=== PATIENT | female | born 1995 | race Caucasian/White ===

== ENCOUNTER 2016-06-11 14:26 | Emergency (ER) | payer OTHER ==
[2016-06-11] MEDS ORDERED: ONDANSETRON 4 MG/2 ML VIAL IVP ONE ×2 (14:52→15:57)
[2016-06-11] MEDS ORDERED: NS 1,000 ML IV ONE ×2 (14:52→15:57)
[2016-06-11 15:07] LABS: % IMMATURE GRANULYOCYTES 0.4 % (0.0-1.1); ABSOLUTE IMMATURE GRANULOCYTES 0.06 10^3/uL (0.00-0.10); ADD DIFF? NO; ADD MORPH? NO; ADD SCAN? NO; ATYPICAL LYMPHOCYTE FLAG 0 (0-99); FRAGMENT RBC FLAG 0 (0-99); HEMATOCRIT 46.3 % (38.0-47.0); HEMOGLOBIN 15.9 g/dL (12.6-16.3); LEFT SHIFT FLG 0 (0-99); LIPEMIA HEMOLYSIS FLAG 90 (0-99); MEAN CELL HEMOGLOBIN 30.8 pg (27.9-34.1); MEAN CELL HEMOGLOBIN CONCENTR. 34.3 g/dL (32.4-36.7); MEAN CELL VOLUME 89.6 fL (81.5-99.8); MEAN PLATELET VOLUME 9.3 fL (8.7-11.7); PLATELET CLUMPS FLAG 0 (0-99); PLATELET COUNT 280 10^3/uL (150-400); RED BLOOD CELL COUNT 5.17 10^6/uL (4.18-5.33); RED CELL DISTRIBUTION WIDTH 13.1 % (11.5-15.2)
--- NOTE | 2016-06-11 15:09 | EDPHY ---
H & P Stated Complaint: sore throat, subjective fever, aches, nausea Source: Patient, Old records Exam Limitations: No limitations - Personal History LMP (Females 10-55): 15-21 Days Ago Current Tetanus/Diphtheria Vaccine: Unsure Current Tetanus Diphtheria and Acellular Pertussis (TDAP): Unsure Tetanus Vaccine Date: <10 years [employer] student - Medical/Surgical History Hx Asthma: Yes Hx Chronic Respiratory Disease: No Hx Diabetes: No Hx Cardiac Disease: No Hx Renal Disease: No Hx Cirrhosis: No Hx Alcoholism: No Hx HIV/AIDS: No Hx Splenectomy or Spleen Trauma: No Other PMH: Raynauds, cataracts, pancreatitis, asthma, vocal cord dysfunction, IBS, back pain, post concussion synd; septum repair 10/10/15. chronic n/v - Social History Smoking Status: Never smoked HPI/ROS: CHIEF COMPLAINT: sore throat, flu-like symptoms HISTORY OF PRESENT ILLNESS: patient reports 1 day history of fever, sore throat , cough, runny nose, body aches, anorexia, nausea, headache. She thinks she has the flu. She is not actively vomiting but does not have any appetite. She has no chest pain or shortness of breath. No abdominal pain. She may have some concentration of her urine. Fever was a T-max of 103 yesterday. She did have associated headache. There is no neck pain or stiffness. No recent travel or surgery. There are no particular modifying factors for this as she has had no improvement with [id number] medications. No other associated complaints or modifying factors. REVIEW OF SYSTEMS: Ten systems reviewed and are negative unless otherwise noted in the HPI EXAMINATION General Appearance: Alert, no distress Head: normocephalic, atraumatic Eyes: Pupils equal and round, no conjunctival pallor or injection . EOMs intact. ENT, Mouth: Mucous membranes moist . Uvula midline. Posterior erythema without edema. There is purulence on both tonsils. Tonsils are symmetric and without abscess. Airway is patent. No abnormality of the floor of the mouth. Neck: Normal inspection, supple, non-tender . Painless range of motion all planes. No meningismus. Respiratory: Lungs are clear to auscultation . No wheezing, rhonchi or crackles. Cardiovascular: Regular rate and rhythm . No murmur. Pulses intact distally and symmetrically. Gastrointestinal: Abdomen is soft and nontender . No CVA tenderness Neurological: A&O, nonfocal, normal gait. Strength is symmetric in all limbs. Skin: Warm and dry, No petechiae or purpura. No rash. Extremities: Nontender, no pedal edema Psychiatric: Mood and affect normal DIFFERENTIAL DIAGNOSES: Including but not limited to Influenza, viral illness, nausea vomiting, dehydration, strep pharyngitis, electrolyte disturbance, UTI MDM: 2:55 p.m. Multiple complaints consistent with most likely influenza or viral illness. No chest pain. No shortness of breath. No abdominal pain. She does have vomiting , body aches, chills, headache, anorexia and feels that she is dehydrated. Vital signs are stable with very mild tachycardia 106 beats per minute at times , otherwise no tachycardia while I was in the room. Baseline laboratory studies , IV fluid, influenza and rapid strep been ordered. 3:25 p.m. laboratory studies positive for strep pharyngitis. Negative influenza. CBC reveals than expected leukocytosis. Chemistry pending. Vital signs are stable. Given her drug allergies I will initiate treatment with clindamycin. 3:55 p.m. I have re-evaluated the patient. I informed her of her positive for rapid strep test. I also informed that her laboratory studies are otherwise normal. Informed her that I be discharged home with clindamycin, Zofran and promethazine. The patient then began crying saying that she needs to be admitted for this. I informed her that she does not meet inpatient or observation criteria for her strep pharyngitis. I informed that we will provide another L of IV fluid resuscitation and she will be discharged home. She is follow up with primary care physician, Ede or return to ER should her symptoms worsen. SUPERVISION: This patient was independently evaluated without the aide of supervising physician. (Roldan Austin) Constitutional: Initial Vital Signs Temperature (C) 36.7 C 06/11/16 14:28 Heart Rate 108 H 06/11/16 14:28 Respiratory Rate 16 06/11/16 14:28 Blood Pressure 102/79 06/11/16 14:28 O2 Sat (%) 98 06/11/16 14:28 O2 Delivery Mode Room Air Allergies/Adverse Reactions: azithromycin Allergy (Severe, Verified 03/30/16 12:32) Abdominal Pain amoxicillin Allergy (Verified 03/30/16 12:32) Home Medications: Medication Instructions Recorded Nortriptyline HCl 12/03/15 Spironolactone 12/03/15 AMPHOTERICIN B 03/29/16 Albuterol 5 mg/ml INH 03/29/16 Baclofen 03/29/16 Budesonide 03/29/16 Clindamycin 03/29/16 Oxycodone HCl/Acetaminophen 1 each PO Q6 PRN #15 tablet 03/29/16 [Oxycodone-Acetaminophen 10-325] Symbicort 160-4.5 Mcg Inh (*) 03/29/16 VYVANSE 03/29/16 Ondansetron Odt [Zofran Odt 4 mg 4 mg PO Q4PRN PRN #20 tab 03/30/16 (*)] Promethazine HCl [Phenergan 25mg 25 mg PO Q4-6PRN PRN #12 tab 03/30/16 (*)] Hydrocodone/APAP 5/325 [Michael 1 - 2 tab PO Q4 PRN #14 tab 04/01/16 5/325 (RX)] Acetaminophen/Codeine 300/30Mg 1 each PO Q6 PRN #15 tab 06/11/16 [Tylenol #3 (*)] Clindamycin 300 mg PO Q8 #42 cap 06/11/16 Ondansetron Odt [Zofran Odt 4 mg 4 mg PO Q6 PRN #12 tab 06/11/16 (*)] Promethazine HCl [Phenergan 25mg 25 mg PO Q8 PRN #12 tab 06/11/16 (*)] Medical Decision Making Other Provider: The patient was evaluated and managed by the physician assistant producer. I have reviewed this chart and I agree with the findings and plan of care as documented , as indicated by my signature. I am the secondary supervising physician. ( Carolyn Guadarrama) - Data Points Laboratory Results: Laboratory Results 06/11/16 14:55 06/11/16 14:55 06/11/16 06/11/16 06/11/16 14:55 14:55 14:55 WBC 14.33 10^3/uL H 10^3/uL (3.80-9.50) RBC 5.17 10^6/uL 10^6/uL (4.18-5.33) Hgb 15.9 g/dL g/dL (12.6-16.3) Hct 46.3 % % (38.0-47.0) MCV 89.6 fL fL (81.5-99.8) MCH 30.8 pg pg (27.9-34.1) MCHC 34.3 g/dL g/dL (32.4-36.7) RDW 13.1 % % (11.5-15.2) Plt Count 280 10^3/uL 10^3/uL (150-400) MPV 9.3 fL fL (8.7-11.7) Neut % (Auto) 83.8 % H % (39.3-74.2) Lymph % (Auto) 10.5 % L % (15.0-45.0) [place] % (Auto) 4.5 % % (4.5-13.0) Eos % (Auto) 0.3 % L % (0.6-7.6) Baso % (Auto) 0.5 % % (0.3-1.7) Nucleat RBC Rel Count 0.0 % % (0.0-0.2) Absolute Neuts (auto) 12.00 10^3/uL H 10^3/uL (1.70-6.50) Absolute Lymphs (auto) 1.51 10^3/uL 10^3/uL (1.00-3.00) Absolute Monos (auto) 0.64 10^3/uL 10^3/uL (0.30-0.80) Absolute Eos (auto) 0.05 10^3/uL 10^3/uL (0.03-0.40) Absolute Basos (auto) 0.07 10^3/uL 10^3/uL (0.02-0.10) Absolute Nucleated RBC 0.00 10^3/uL 10^3/uL (0-0.01) Immature Gran % 0.4 % % (0.0-1.1) Immature Gran # 0.06 10^3/uL 10^3/uL (0.00-0.10) Sodium 137 mEq/L mEq/L (134-144) Potassium 3.8 mEq/L mEq/L (3.5-5.2) Chloride 98 mEq/L mEq/L (97-110) Carbon Dioxide 25 mEq/l mEq/l (22-31) Anion Gap 14 mEq/L mEq/L (8-16) BUN 10 mg/dL mg/dL (7-23) Creatinine 0.7 mg/dL mg/dL (0.6-1.0) Estimated GFR > 60 Glucose 75 mg/dL mg/dL (70-100) Calcium 10.1 mg/dL mg/dL (8.5-10.4) Lipase 62.0 IU/L IU/L (23-300) Beta HCG, Qual NEGATIVE Influenza Typ A,B (DFA) Group A Strep Screen 06/11/16 06/11/16 14:45 14:45 WBC RBC Hgb Hct MCV MCH MCHC RDW Plt Count MPV Neut % (Auto) Lymph % (Auto) [place] % (Auto) Eos % (Auto) Baso % (Auto) Nucleat RBC Rel Count Absolute Neuts (auto) Absolute Lymphs (auto) Absolute Monos (auto) Absolute Eos (auto) Absolute Basos (auto) Absolute Nucleated RBC Immature Gran % Immature Gran # Sodium Potassium Chloride Carbon Dioxide Anion Gap BUN Creatinine Estimated GFR Glucose Calcium Lipase Beta HCG, Qual Influenza Typ A,B (DFA) NEGATIVE FOR FLU (NEGATIVE) Group A Strep Screen POSITIVE H (NEGATIVE) Medications Given: Discontinued Medications Clindamycin (Clindamycin) 300 mg PO EDNOW ONE PRN Reason: Protocol Stop: 06/11/16 15:28 Last Admin: 06/11/16 15:38 Dose: 300 mg Sodium Chloride (Ns) 1,000 mls @ 0 mls/hr IV ONCE ONE PRN Reason: Wide Open Stop: 06/11/16 14:53 Last Admin: 06/11/16 15:00 Dose: 1,000 mls Sodium Chloride (Ns) 1,000 mls @ 0 mls/hr IV ONCE ONE PRN Reason: Wide Open Stop: 06/11/16 15:58 Last Admin: 06/11/16 16:00 Dose: 1,000 mls Ondansetron HCl (Zofran) 4 mg IVP EDNOW ONE Stop: 06/11/16 14:53 Last Admin: 06/11/16 15:00 Dose: 4 mg Ondansetron HCl (Zofran) 4 mg IVP EDNOW ONE Stop: 06/11/16 15:58 Last Admin: 06/11/16 16:02 Dose: 4 mg Departure - Departure Disposition: Home, Routine, Self-Care Clinical Impression: Flu-like symptoms, Strep pharyngitis Condition: Good Instructions: Influenza (ED) Additional Instructions: Follow-up with primary care physician. Return to the ER for chest pain, shortness of breath or vomiting the last 24 hours. Referrals: CELINE ABBOTT [Primary Care Provider] - As per Instructions Stand Alone Forms: School Excuse Prescriptions: Acetaminophen/Codeine 300/30Mg [Tylenol #3 (*)] 1 each PO Q6 PRN #15 tab PRN Reason: Pain, Mild Clindamycin 300 mg PO Q8 #42 cap Ondansetron Odt [Zofran Odt 4 mg (*)] 4 mg PO Q6 PRN #12 tab PRN Reason: Nausea/Vomiting, Use 1st Promethazine HCl [Phenergan 25mg (*)] 25 mg PO Q8 PRN #12 tab PRN Reason: Nausea/Vomiting, Use 1st
[2016-06-11] MEDS ORDERED: CLINDAMYCIN 150 MG CAP PO ONE (15:27)
[2016-06-11 15:33] LABS: ANION GAP 14 mEq/L (8-16); CALCIUM 10.1 mg/dL (8.5-10.4); CARBON DIOXIDE 25 mEq/l (22-31); CHLORIDE 98 mEq/L (97-110); CREATININE 0.7 mg/dL (0.6-1.0); GLOMERULAR FILTRATION RATE > 60; GLUCOSE 75 mg/dL (70-100); POTASSIUM 3.8 mEq/L (3.5-5.2); SODIUM 137 mEq/L (134-144)
[2016-06-11 17:41] VITALS: BP 110/69; PULSE 90; RESP 20; TEMP 99; O2SAT 96
== END 2016-06-11 17:42 | disposition home or self-care (01) ==
DX: J11.1 Influenza due to unidentified influenza virus with other respiratory manifestations (principal); J45.909 Unspecified asthma, uncomplicated
CPT/HCPCS: 96374; J2405

== ENCOUNTER 2016-06-30 14:22 | Emergency (ER) | payer OTHER ==
[2016-06-30] MEDS ORDERED: ONDANSETRON 4 MG/2 ML VIAL IVP ONE (17:09)
[2016-06-30] MEDS ORDERED: NS 1,000 ML IV ONE (17:09)
[2016-06-30] MEDS ORDERED: LORazepam 2 MG/ML INJ IVP ONE (17:17)
--- NOTE | 2016-06-30 17:23 | EDPHY ---
General Narrative: CHIEF COMPLAINT: multiple complaints, flu-like symptoms, strep pharyngitis HISTORY OF PRESENT ILLNESS: patient has had sore throat and flu-like symptoms since May. The symptoms have been constant. They are moderate to severe. They wax and wane but never improved beyond moderate. No neck pain or stiffness. She has had some headache, body aches, chills, nausea, vomiting, diarrhea. She has been seen multiple times for this both here and at specialist 's office. She says that no medications that have been used to help her. These include multiple different antibiotics, nausea medicines and over-the- counter medicines. She cannot really quantify her severity of her complaints. She is crying during my examination. She says she has also seen a vest busheler recently been diagnosed with fibromyalgia last week. She has become very tearful and upset with this process. She denies any predictable alleviating factors. No other associated complaints. REVIEW OF SYSTEMS: Ten systems reviewed and are negative unless otherwise noted in the HPI EXAMINATION General Appearance: Alert, No acute distress. Crying but consolable. Head: normocephalic, atraumatic Eyes: Pupils equal and round, no conjunctival pallor or injection . EOMs intact. ENT, Mouth: Mucous membranes moist . Posterior erythema. No edema. No abscess. No abnormality of the floor the mouth. Neck: Normal inspection, supple, non-tender . Anterior cervical lymphadenopathy. No rigidity or meningismus. Respiratory: Lungs are clear to auscultation . No wheezing, rhonchi or crackles. Cardiovascular: Regular rate and rhythm . No murmur. Pulses intact distally. Gastrointestinal: Abdomen is soft and nontender . No tympany. No rigidity. No guarding. No Rovsing. No CVA tenderness. Nonacute abdomen. Neurological: A&O, nonfocal, Strength is symmetric in all limbs. Skin: Warm and dry, no rash Extremities: Nontender, Symmetric range of motion.no pedal edema Psychiatric: Depressed mood and affect. No suicidal or homicidal ideation. Tearful. DIFFERENTIAL DIAGNOSES: Including but not limited to Depression, mood disorder, chronic strep pharyngitis, influenza, viral illness, nausea vomiting, gastroparesis, chronic regional pain MDM: 5:15 p.m. multiple complaints that are very vague and difficult for her to describe. He has include sore throat, body aches, abdominal pain, vomiting, headache, fevers , chills. The patient says she has been seen by Rheumatology, primary care physician, Infectious Disease, psychiatrist and others without any formal diagnosis. She has no chest pain. She has occasional cough. She is crying during my examination, but there are no abnormal physical findings. I will provide IV fluid resuscitation, Ativan for her stress and verify her electrolytes 6:15 p.m. I have re-evaluated the patient. She is now smiling and watching a movie on her laptop with her boyfriend who is lying in the bed with her. She is in no acute distress. Her vital signs are stable. Her laboratory studies are better than her previous visits. I feel there is a viral component, but I feel there is also a psychiatric component to this. I recommend she follow up with [facility]. She is not suicidal or homicidal, but there is no need for inpatient evaluation at this time. I also recommend she reconsider her primary care physician given that she reports being unhappy with the care. She is discharged home in stable condition with no further questions at this time. SUPERVISION: Patient was evaluated in conjunction with the supervising physician. Please see their note for details. - History Smoking Status: Never smoked - Objective Vital Signs: Initial Vital Signs Temperature (C) 98.1 F 06/30/16 14:37 Heart Rate 97 06/30/16 14:37 Respiratory Rate 18 06/30/16 14:37 Blood Pressure 98/81 H 06/30/16 14:37 O2 Sat (%) 94 06/30/16 14:37 O2 Delivery Mode Room Air Allergies/Adverse Reactions: azithromycin Allergy (Severe, Verified 06/30/16 14:35) Abdominal Pain amoxicillin Allergy (Verified 06/30/16 14:35) Home Medications: Medication Instructions Recorded Nortriptyline HCl 12/03/15 Spironolactone 12/03/15 Albuterol 5 mg/ml INH 03/29/16 Baclofen 03/29/16 Budesonide 03/29/16 Symbicort 160-4.5 Mcg Inh (*) 03/29/16 VYVANSE 03/29/16 Ondansetron Odt [Zofran Odt 4 mg 4 mg PO Q4PRN PRN #20 tab 03/30/16 (*)] Promethazine HCl [Phenergan 25mg 25 mg PO Q4-6PRN PRN #12 tab 03/30/16 (*)] Acetaminophen/Codeine 300/30Mg 1 each PO Q6 PRN #15 tab 06/11/16 [Tylenol #3 (*)] Ondansetron Odt [Zofran Odt 4 mg 4 mg PO Q6 PRN #12 tab 06/11/16 (*)] Promethazine HCl [Phenergan 25mg 25 mg PO Q8 PRN #12 tab 06/11/16 (*)] hydrOXYzine HCL [Hydroxyzine HCl] 50 mg PO Q6-8PRN PRN #20 tablet 06/30/16 Laboratory Results: Laboratory Results 06/30/16 17:07 06/30/16 17:07 06/30/16 06/30/16 06/30/16 17:58 17:07 17:07 WBC 8.70 10^3/uL 10^3/uL (3.80-9.50) RBC 5.17 10^6/uL 10^6/uL (4.18-5.33) Hgb 15.3 g/dL g/dL (12.6-16.3) Hct 45.2 % % (38.0-47.0) MCV 87.4 fL fL (81.5-99.8) MCH 29.6 pg pg (27.9-34.1) MCHC 33.8 g/dL g/dL (32.4-36.7) RDW 12.8 % % (11.5-15.2) Plt Count 331 10^3/uL 10^3/uL (150-400) MPV 9.6 fL fL (8.7-11.7) Neut % (Auto) 76.3 % H % (39.3-74.2) Lymph % (Auto) 16.6 % % (15.0-45.0) [place] % (Auto) 5.5 % % (4.5-13.0) Eos % (Auto) 0.8 % % (0.6-7.6) Baso % (Auto) 0.6 % % (0.3-1.7) Nucleat RBC Rel Count 0.0 % % (0.0-0.2) Absolute Neuts (auto) 6.64 10^3/uL H 10^3/uL (1.70-6.50) Absolute Lymphs (auto) 1.44 10^3/uL 10^3/uL (1.00-3.00) Absolute Monos (auto) 0.48 10^3/uL 10^3/uL (0.30-0.80) Absolute Eos (auto) 0.07 10^3/uL 10^3/uL (0.03-0.40) Absolute Basos (auto) 0.05 10^3/uL 10^3/uL (0.02-0.10) Absolute Nucleated RBC 0.00 10^3/uL 10^3/uL (0-0.01) Immature Gran % 0.2 % % (0.0-1.1) Immature Gran # 0.02 10^3/uL 10^3/uL (0.00-0.10) Sodium Potassium Chloride Carbon Dioxide Anion Gap BUN Creatinine Estimated GFR Glucose Calcium Total Bilirubin Conjugated Bilirubin Unconjugated Bilirubin AST ALT Alkaline Phosphatase Total Protein Albumin Lipase Beta HCG, Qual NEGATIVE Urine Opiates Screen Pending Urine Barbiturates Pending Ur Phencyclidine Scrn Pending Ur Amphetamine Screen Pending U Benzodiazepines Scrn Pending Urine Cocaine Screen Pending U Marijuana (THC) Screen Pending Monoscreen NEGATIVE (NEGATIVE) 06/30/16 17:07 WBC RBC Hgb Hct MCV MCH MCHC RDW Plt Count MPV Neut % (Auto) Lymph % (Auto) [place] % (Auto) Eos % (Auto) Baso % (Auto) Nucleat RBC Rel Count Absolute Neuts (auto) Absolute Lymphs (auto) Absolute Monos (auto) Absolute Eos (auto) Absolute Basos (auto) Absolute Nucleated RBC Immature Gran % Immature Gran # Sodium 137 mEq/L mEq/L (134-144) Potassium 3.7 mEq/L mEq/L (3.5-5.2) Chloride 101 mEq/L mEq/L (97-110) Carbon Dioxide 20 mEq/l L mEq/l (22-31) Anion Gap 16 mEq/L mEq/L (8-16) BUN 6 mg/dL L mg/dL (7-23) Creatinine 0.7 mg/dL mg/dL (0.6-1.0) Estimated GFR > 60 Glucose 93 mg/dL mg/dL (70-100) Calcium 9.8 mg/dL mg/dL (8.5-10.4) Total Bilirubin 0.6 mg/dL mg/dL (0.1-1.4) Conjugated Bilirubin 0.5 mg/dL mg/dL (0.0-0.5) Unconjugated Bilirubin 0.1 mg/dL mg/dL (0.0-1.1) AST 27 IU/L IU/L (14-46) ALT 33 IU/L IU/L (9-52) Alkaline Phosphatase 73 IU/L IU/L (38-126) Total Protein 8.1 g/dL g/dL (6.3-8.2) Albumin 4.7 g/dL g/dL (3.5-5.0) Lipase 155.0 IU/L IU/L (23-300) Beta HCG, Qual Urine Opiates Screen Urine Barbiturates Ur Phencyclidine Scrn Ur Amphetamine Screen U Benzodiazepines Scrn Urine Cocaine Screen U Marijuana (THC) Screen Monoscreen Medications Given: Discontinued Medications Sodium Chloride (Ns) 1,000 mls @ 0 mls/hr IV ONCE ONE PRN Reason: Wide Open Stop: 06/30/16 17:10 Last Admin: 06/30/16 17:19 Dose: 1,000 mls Lorazepam (Ativan Injection) 1 mg IVP EDNOW ONE Stop: 06/30/16 17:18 Last Admin: 06/30/16 17:25 Dose: 1 mg Ondansetron HCl (Zofran) 4 mg IVP EDNOW ONE Stop: 06/30/16 17:10 Last Admin: 06/30/16 17:25 Dose: 4 mg Departure - Departure Disposition: Home, Routine, Self-Care Clinical Impression: Viral syndrome Condition: Good Instructions: Viral Syndrome (ED), Anxiety (ED), [facility] Referrals: CELINE ABBOTT [Primary Care Provider] - As per Instructions Raudel Rodarte MD [Medical Doctor] - As per Instructions Veronica Adams MD [Medical Doctor] - As per Instructions [facility],. [Clinic] - As per Instructions Prescriptions: hydrOXYzine HCL [Hydroxyzine HCl] 50 mg PO Q6-8PRN PRN #20 tablet PRN Reason: Itching
[2016-06-30 17:29] LABS: % IMMATURE GRANULYOCYTES 0.2 % (0.0-1.1); ABSOLUTE IMMATURE GRANULOCYTES 0.02 10^3/uL (0.00-0.10); ADD DIFF? NO; ADD MORPH? NO; ADD SCAN? NO; ATYPICAL LYMPHOCYTE FLAG 30 (0-99); FRAGMENT RBC FLAG 0 (0-99); HEMATOCRIT 45.2 % (38.0-47.0); HEMOGLOBIN 15.3 g/dL (12.6-16.3); LEFT SHIFT FLG 0 (0-99); LIPEMIA HEMOLYSIS FLAG 90 (0-99); MEAN CELL HEMOGLOBIN 29.6 pg (27.9-34.1); MEAN CELL HEMOGLOBIN CONCENTR. 33.8 g/dL (32.4-36.7); MEAN CELL VOLUME 87.4 fL (81.5-99.8); MEAN PLATELET VOLUME 9.6 fL (8.7-11.7); PLATELET CLUMPS FLAG 0 (0-99); PLATELET COUNT 331 10^3/uL (150-400); RED BLOOD CELL COUNT 5.17 10^6/uL (4.18-5.33); RED CELL DISTRIBUTION WIDTH 12.8 % (11.5-15.2)
[2016-06-30 17:46] LABS: ALANINE AMINOTRANSFERASE 33 IU/L (9-52); ALBUMIN 4.7 g/dL (3.5-5.0); ALKALINE PHOSPHATASE 73 IU/L (38-126); ANION GAP 16 mEq/L (8-16); ASPARTATE AMINOTRANSFERASE 27 IU/L (14-46); BILIRUBIN,TOTAL 0.6 mg/dL (0.1-1.4); BILIRUBIN-CONJUGATED 0.5 mg/dL (0.0-0.5); BILIRUBIN-UNCONJUGATED 0.1 mg/dL (0.0-1.1); CALCIUM 9.8 mg/dL (8.5-10.4); CARBON DIOXIDE 20 mEq/l (22-31); CHLORIDE 101 mEq/L (97-110); CREATININE 0.7 mg/dL (0.6-1.0); GLOMERULAR FILTRATION RATE > 60; GLUCOSE 93 mg/dL (70-100); POTASSIUM 3.7 mEq/L (3.5-5.2); SODIUM 137 mEq/L (134-144); TOTAL PROTEIN 8.1 g/dL (6.3-8.2)
[2016-06-30 17:54] LABS: BHCG-QUALITATIVE NEGATIVE
[2016-06-30 17:55] LABS: MONO TEST NEGATIVE (NEGATIVE)
[2016-06-30 18:40] VITALS: BP 109/62; PULSE 96; RESP 20; TEMP 99.1; O2SAT 97
== END 2016-06-30 18:40 | disposition home or self-care (01) ==
DX: B34.9 Viral infection, unspecified (principal)
CPT/HCPCS: 80305; 96374; J2405

== ENCOUNTER 2017-03-01 18:09 | Emergency (ER) | payer OTHER ==
[2017-03-01 18:25] VITALS: TEMP 98.4
--- NOTE | 2017-03-01 19:44 | EDPHY ---
H & P Stated Complaint: H/A, sore throat;head feels heavy,fever this morning *botox~ 2wks ago Time Seen by Provider: 03/01/17 19:28 HPI/ROS: CHIEF COMPLAINT: Migraine, neck pain, fever HISTORY OF PRESENT ILLNESS: The patient is a 22 y/o female with a history of chronic migraines, complaining of a migraine, neck pain, and fever for the past 4 days. On 02/15/17, 2 weeks ago, she visited her neurologist and received a Botox injection in the back of her neck for her migraines. This was her first Botox injection. 4 days ago she developed nasal congestion, diarrhea, nausea, a fever, pain near the injection site, and a migraine. Due to the pain, it is mildly difficult to breath. She also developed a rash on her armpits. Yesterday she had a sore throat. Today her neck pain worsened. She and her family are very concerned that she may have meningitis. She also is concerned that she has a sinus infection with significant sinus/facial pain. She is still having post-nasal drip, nausea, diarrhea, neck pain and a migraine. She has also felt clammy. States that most pain medications and migraine medications do not work. Denies speaking to her neurologist regarding her symptoms. Denies taking anything to relieve her symptoms. Denies tobacco or illicit drug use. Denies recent travel outside of the [place]. No chills, chest pain, palpitations, vomiting, urinary complaints, lightheadedness. REVIEW OF SYSTEMS: Aside from elements discussed in the HPI, a comprehensive 10-point review of systems was reviewed and is negative. PAST MEDICAL HISTORY: Chronic migraines, fibromyalgia, Raynaud, cataracts, pancreatitis, asthma, IBS SOCIAL HISTORY: Student at , lives in [place], marijuana and alcohol use VITAL SIGNS: BP: 95/60, others reviewed by me GENERAL: Well-developed, well-nourished, resting comfortably in no respiratory distress. HEENT: Atraumatic. Eyes: No icterus, no injection. Tenderness to percussion across the maxillary sinuses. Mouth: moist mucous membranes. Pharynx: Mild erythema, no tonsillar enlargement or exudates. Neck: Difficulty lifting and turning neck secondary to pain, no adenopathy. Neck is supple. Paraspinous muscles are soft and supple. Negative Kernig's and Brudzinski's. LUNGS: Clear to auscultation bilaterally, no wheezes, rhonchi or rales. CARDIAC: Regular rate and rhythm, no rubs, murmurs or gallops. ABDOMEN: Soft, nontender, nondistended, bowel sounds normal. BACK: No CVA tenderness. EXTREMITIES: No trauma. No edema. Range of motion is normal throughout. NEURO: Alert and oriented, cranial nerves 2-12 are intact. Normal motor strength throughout. Normal sensation. Not encephalopathic. SKIN: Erythematous, slightly urticarial in appearance, rash in both axilla, left greater than right. Warm and dry. PSYCHIATRIC: Normal mentation, no agitation. Portions of this note were transcribed by a regional medical director. I personally performed a history, physical exam, medical decision making, and confirmed accuracy of information the transcribed note. - Personal History LMP (Females 10-55): 1-7 Days Ago Current Tetanus Diphtheria and Acellular Pertussis (TDAP): Yes Tetanus Vaccine Date: <10 years [employer] student - Medical/Surgical History Hx Asthma: Yes Hx Chronic Respiratory Disease: No Hx Diabetes: No Hx Cardiac Disease: No Hx Renal Disease: No Hx Cirrhosis: No Hx Alcoholism: No Hx HIV/AIDS: No Hx Splenectomy or Spleen Trauma: No Other PMH: Raynauds, cataracts, pancreatitis, asthma, vocal cord dysfunction, IBS, back pain, post concussion synd; septum repair 10/10/15. chronic n/v fibromyalgia. daily migraines tx'd w/botox - Social History Smoking Status: Never smoked Constitutional: Initial Vital Signs Temperature (C) 36.9 C 03/01/17 18:22 Heart Rate 78 03/01/17 18:22 Respiratory Rate 16 03/01/17 18:22 Blood Pressure 95/60 L 03/01/17 18:22 O2 Sat (%) 98 03/01/17 18:22 O2 Delivery Mode Room Air Allergies/Adverse Reactions: amoxicillin Allergy (Intermediate, Verified 03/01/17 18:20) facial swelling/hives azithromycin Allergy (Intermediate, Verified 03/01/17 18:20) Abdominal Pain Home Medications: Medication Instructions Recorded Spironolactone 12/03/15 Botulinum Toxin Type A [Botox] 100 unit IJ 03/01/17 Doxycycline Hyclate [Vibramycin 100 mg PO BID 03/01/17 100 MG (*)] Sulfamethox/Tmp 800/160 mg 1 tab PO BID #14 tab 03/01/17 [Bactrim Ds] Medical Decision Making Procedures: Procedure: Lumbar puncture. Indication: headache After verbal informed consent from patient explaining the risks including infection, bleeding, and neurologic damage, a lumbar puncture was performed after the patient was prepped and draped in the usual fashion. The back was anesthetized with 1% lidocaine. Approximately 4 cc of clear fluid was obtained using a 22 gauge needle on the 1st pass. Opening pressure was not obtained. There were no complications. The procedure was performed by myself, Dr. William ED Course/Re-evaluation: The patient is a 22 y/o female with a history of chronic migraines, presenting with posterior neck pain, migraine, sinus congestion, and nausea for the past 4 days. She received her first Botox injection for chronic migraines on 02/15/17, 2 weeks ago. On exam she has an erythemic throat, nonspecific rash in both axilla, and difficulty lifting and turning her neck due to pain. IV placed and patient received normal saline. She requested Zofran for nausea. She received Decadron for her headache pain. She reports that ketorolac and opiate medications do not help her headache. She did receive Benadryl. 2024: Reassessed patient and discussed negative laboratory findings. Her headache is the same from the initial exam. She continues to report that her neck is very painful. I discussed performing a lumbar puncture. She is comfortable with the plan to do a lumbar puncture. Valium administered for patient's headache. 2099: Lumbar puncture performed. Fluid is clear. Sent to lab for analysis. 2113: Patient's flu is negative. 2156: CSF results reassuring with 0 reds and 0 whites in tube 4, clear, colorless, no organisms seen on Gram stain. 2199: Reassessed patient and discussed laboratory findings. At this point we have ruled out meningitis, influenza, strep throat. Patient continues to report headache pain but continues to tell me that there are no medications which have treated her pain in the past. We will try lidocaine patch on her neck. We discussed my concerns the patient may have sinusitis. She does report that she has had many antibiotics in the past and none of them have helped her sinus infections. Due to her allergies to amoxicillin and azithromycin, patient will be placed on Bactrim. I did discuss with her the importance of decongestants in order to help relieve some sinus pressure. I have also advised her to use Flonase. I also encouraged patient to follow up with her neurologist tomorrow, to address her neck discomfort and ongoing migraine. Return precautions provided; patient is comfortable with this plan. Differential Diagnosis: Differential diagnoses for the patient's symptom complex was considered including but not limited to migraine headache, viral syndrome, dehydration, sinusitis, pharyngitis, meningitis, side effect of botulism injection.. - Data Points Laboratory Results: Laboratory Results 03/01/17 19:38 03/01/17 19:38 03/01/17 03/01/17 03/01/17 Unknown 21:00 21:00 WBC RBC Hgb Hct MCV MCH MCHC RDW Plt Count MPV Neut % (Auto) Lymph % (Auto) Lea % (Auto) Eos % (Auto) Baso % (Auto) Nucleat RBC Rel Count Absolute Neuts (auto) Absolute Lymphs (auto) Absolute Monos (auto) Absolute Eos (auto) Absolute Basos (auto) Absolute Nucleated RBC Immature Gran % Immature Gran # Sodium Potassium Chloride Carbon Dioxide Anion Gap BUN Creatinine Estimated GFR Glucose Calcium Beta HCG, Qual CSF Tube Number Cancelled 4 CSF Appearance Cancelled CLEAR (CLEAR) CSF Color Cancelled COLORLESS (COLORLESS) CSF Supernatant Cancelled COLORLESS (COLORLESS) CSF WBC Cancelled 0 /mm3 /mm3 (0-5) CSF RBC Cancelled 0 /mm3 /mm3 (0-0) CSF Comment Cancelled CSF Glucose Cancelled CSF Total Protein Cancelled Nasal Influenza A PCR Nasal Influenza B PCR Influenza A,B Rapid Group A Strep Screen Group A Strep DNA Pending 03/01/17 03/01/17 03/01/17 21:00 20:00 20:00 WBC RBC Hgb Hct MCV MCH MCHC RDW Plt Count MPV Neut % (Auto) Lymph % (Auto) Lea % (Auto) Eos % (Auto) Baso % (Auto) Nucleat RBC Rel Count Absolute Neuts (auto) Absolute Lymphs (auto) Absolute Monos (auto) Absolute Eos (auto) Absolute Basos (auto) Absolute Nucleated RBC Immature Gran % Immature Gran # Sodium Potassium Chloride Carbon Dioxide Anion Gap BUN Creatinine Estimated GFR Glucose Calcium Beta HCG, Qual CSF Tube Number 1 CSF Appearance CLEAR (CLEAR) CSF Color COLORLESS (COLORLESS) CSF Supernatant COLORLESS (COLORLESS) CSF WBC 0 /mm3 /mm3 (0-5) CSF RBC 59 /mm3 H /mm3 (0-0) CSF Comment CSF Glucose 48 mg/dL L mg/dL (50-75) CSF Total Protein 78 mg/dL H mg/dL (12-60) Nasal Influenza A PCR NEGATIVE FOR FLU A (NEGATIVE) Nasal Influenza B PCR NEGATIVE FOR FLU B (NEGATIVE) Influenza A,B Rapid Cancelled Group A Strep Screen Group A Strep DNA 03/01/17 03/01/17 03/01/17 19:38 19:38 19:38 WBC RBC Hgb Hct MCV MCH MCHC RDW Plt Count MPV Neut % (Auto) Lymph % (Auto) Lea % (Auto) Eos % (Auto) Baso % (Auto) Nucleat RBC Rel Count Absolute Neuts (auto) Absolute Lymphs (auto) Absolute Monos (auto) Absolute Eos (auto) Absolute Basos (auto) Absolute Nucleated RBC Immature Gran % Immature Gran # Sodium 138 mEq/L mEq/L (134-144) Potassium 3.9 mEq/L mEq/L (3.5-5.2) Chloride 103 mEq/L mEq/L (97-110) Carbon Dioxide 23 mEq/l mEq/l (22-31) Anion Gap 12 mEq/L mEq/L (8-16) BUN 17 mg/dL mg/dL (7-23) Creatinine 1.1 mg/dL H mg/dL (0.6-1.0) Estimated GFR > 60 Glucose 89 mg/dL mg/dL (70-100) Calcium 9.4 mg/dL mg/dL (8.5-10.4) Beta HCG, Qual NEGATIVE CSF Tube Number CSF Appearance CSF Color CSF Supernatant CSF WBC CSF RBC CSF Comment CSF Glucose CSF Total Protein Nasal Influenza A PCR Cancelled Nasal Influenza B PCR Cancelled Influenza A,B Rapid Group A Strep Screen NEGATIVE (NEGATIVE) Group A Strep DNA 03/01/17 19:38 WBC 8.18 10^3/uL 10^3/uL (3.80-9.50) RBC 4.81 10^6/uL 10^6/uL (4.18-5.33) Hgb 15.0 g/dL g/dL (12.6-16.3) Hct 43.3 % % (38.0-47.0) MCV 90.0 fL fL (81.5-99.8) MCH 31.2 pg pg (27.9-34.1) MCHC 34.6 g/dL g/dL (32.4-36.7) RDW 12.6 % % (11.5-15.2) Plt Count 257 10^3/uL 10^3/uL (150-400) MPV 9.2 fL fL (8.7-11.7) Neut % (Auto) 67.8 % % (39.3-74.2) Lymph % (Auto) 25.6 % % (15.0-45.0) Lea % (Auto) 5.0 % % (4.5-13.0) Eos % (Auto) 0.7 % % (0.6-7.6) Baso % (Auto) 0.7 % % (0.3-1.7) Nucleat RBC Rel Count 0.0 % % (0.0-0.2) Absolute Neuts (auto) 5.54 10^3/uL 10^3/uL (1.70-6.50) Absolute Lymphs (auto) 2.09 10^3/uL 10^3/uL (1.00-3.00) Absolute Monos (auto) 0.41 10^3/uL 10^3/uL (0.30-0.80) Absolute Eos (auto) 0.06 10^3/uL 10^3/uL (0.03-0.40) Absolute Basos (auto) 0.06 10^3/uL 10^3/uL (0.02-0.10) Absolute Nucleated RBC 0.00 10^3/uL 10^3/uL (0-0.01) Immature Gran % 0.2 % % (0.0-1.1) Immature Gran # 0.02 10^3/uL 10^3/uL (0.00-0.10) Sodium Potassium Chloride Carbon Dioxide Anion Gap BUN Creatinine Estimated GFR Glucose Calcium Beta HCG, Qual CSF Tube Number CSF Appearance CSF Color CSF Supernatant CSF WBC CSF RBC CSF Comment CSF Glucose CSF Total Protein Nasal Influenza A PCR Nasal Influenza B PCR Influenza A,B Rapid Group A Strep Screen Group A Strep DNA Microbiology Results: MICROBIOLOGY 03/01/17 21:00 Cerebral Spinal Fluid Gram Stain - Final Medications Given: Discontinued Medications Dexamethasone (Decadron Injection) 10 mg IVP EDNOW ONE Stop: 03/01/17 19:48 Last Admin: 03/01/17 19:58 Dose: 10 mg Diazepam (Valium Injection) 5 mg IVP EDNOW ONE Stop: 03/01/17 20:39 Last Admin: 03/01/17 20:39 Dose: 5 mg Diphenhydramine HCl (Benadryl Injection) 25 mg IVP EDNOW ONE Stop: 03/01/17 19:48 Last Admin: 03/01/17 19:58 Dose: 25 mg Sodium Chloride (Ns) 1,000 mls @ 0 mls/hr IV ONCE ONE; Wide Open PRN Reason: Protocol Stop: 03/01/17 19:49 Last Admin: 03/01/17 19:57 Dose: 1,000 mls Sodium Chloride (Ns) 1,000 mls @ 0 mls/hr IV ONCE ONE; Wide Open PRN Reason: Protocol Stop: 03/01/17 20:41 Last Admin: 03/01/17 20:45 Dose: 1,000 mls Lidocaine (Lidoderm 5%) 1 ea TD EDNOW ONE Stop: 03/01/17 22:07 Last Admin: 03/01/17 22:23 Dose: 1 ea Lidocaine (Lidoderm 5%) 1 ea TD EDNOW ONE Stop: 03/01/17 22:08 Last Admin: 03/01/17 22:24 Dose: 1 ea Ondansetron HCl (Zofran) 4 mg IVP EDNOW ONE Stop: 03/01/17 19:48 Last Admin: 03/01/17 19:58 Dose: 4 mg Departure - Departure Disposition: Home, Routine, Self-Care Clinical Impression: Neck pain Sinusitis Qualifiers: Sinusitis location: maxillary Chronicity: unspecified Qualified Code(s): J32.0 - Chronic maxillary sinusitis Headache Qualifiers: Headache type: other headache syndrome Qualified Code(s): G44.89 - Other headache syndrome Instructions: Sinusitis (ED), Migraine Headache (ED) Additional Instructions: 1. For your neck pain, I recommend lidocaine patches. These are available [id number]. Ice may also help the discomfort, heating pad may help the discomfort. There is no evidence that your neck pain is secondary to meningitis. Please contact your neurologist regarding your neck pain following the Botox injection. 2. For your headache and facial pain, these symptoms may be related to sinusitis. Please obtain Flonase nasal spray which is available [id number]. Use as directed for the next 4-5 days. I also recommend an [id number] cold medication that contains both a decongestant and antihistamine. You been given a prescription for Bactrim to treat any bacterial infection of your sinuses. 3 Please continue to treat your migraine headache with usual medications. 4. Return to the emergency department if your symptoms are worsening despite the above measures. Referrals: Unknown,Unknown [Unknown] - As per Instructions SHAE Hernandez,. [Clinic] - As per Instructions Prescriptions: Sulfamethox/Tmp 800/160 mg [Bactrim Ds] 1 tab PO BID #14 tab Report Scribed for: Demetria William Report Scribed by: Ary Capps Date of Report: 03/01/17 Time of Report: 21:52
[2017-03-01] MEDS ORDERED: DEXAMETHASONE 10 MG/ML VIAL IVP ONE (19:47)
[2017-03-01] MEDS ORDERED: ONDANSETRON 4 MG/2 ML VIAL IVP ONE (19:47)
[2017-03-01] MEDS ORDERED: NS 1,000 ML IV ONE ×2 (19:48→20:40)
[2017-03-01 19:54] LABS: % IMMATURE GRANULYOCYTES 0.2 % (0.0-1.1); ABSOLUTE IMMATURE GRANULOCYTES 0.02 10^3/uL (0.00-0.10); ADD DIFF? NO; ADD MORPH? NO; ADD SCAN? NO; ATYPICAL LYMPHOCYTE FLAG 10 (0-99); FRAGMENT RBC FLAG 0 (0-99); HEMATOCRIT 43.3 % (38.0-47.0); LEFT SHIFT FLG 0 (0-99); LIPEMIA HEMOLYSIS FLAG 90 (0-99); MEAN CELL HEMOGLOBIN 31.2 pg (27.9-34.1); MEAN CELL HEMOGLOBIN CONCENTR. 34.6 g/dL (32.4-36.7); MEAN PLATELET VOLUME 9.2 fL (8.7-11.7); PLATELET CLUMPS FLAG 10 (0-99); PLATELET COUNT 257 10^3/uL (150-400); RED BLOOD CELL COUNT 4.81 10^6/uL (4.18-5.33); RED CELL DISTRIBUTION WIDTH 12.6 % (11.5-15.2)
[2017-03-01 20:00] LABS: ANION GAP 12 mEq/L (8-16); CALCIUM 9.4 mg/dL (8.5-10.4); CARBON DIOXIDE 23 mEq/l (22-31); CHLORIDE 103 mEq/L (97-110); CREATININE 1.1 mg/dL (0.6-1.0); GLOMERULAR FILTRATION RATE > 60; GLUCOSE 89 mg/dL (70-100); POTASSIUM 3.9 mEq/L (3.5-5.2); SODIUM 138 mEq/L (134-144)
[2017-03-01] MEDS ORDERED: DIAZEPAM 10 MG/2 ML SYR IVP ONE (20:38)
[2017-03-01 21:34] VITALS: RESP 16
[2017-03-01 21:42] LABS: CSF APPEARANCE CLEAR (CLEAR); CSF COLOR COLORLESS (COLORLESS); CSF SUPERNATANT COLORLESS (COLORLESS); WBC, CSF 0 /mm3 (0-5)
[2017-03-01 21:50] LABS: PROTEIN, CSF 78 mg/dL (12-60)
[2017-03-01 21:55] LABS: CSF APPEARANCE CLEAR (CLEAR); CSF COLOR COLORLESS (COLORLESS); CSF SUPERNATANT COLORLESS (COLORLESS)
[2017-03-01 21:56] LABS: WBC, CSF 0 /mm3 (0-5)
[2017-03-01] MEDS ORDERED: LIDOCAINE 5% 1 EA PATCH TD ONE ×2 (22:06→22:07)
[2017-03-01 22:32] VITALS: BP 102/69; PULSE 74; O2SAT 98
[2017-03-02] MEDS ORDERED: PATCH REMOVAL 1 EA PATCH TD SCH (21:00)
== END 2017-03-01 22:32 | disposition home or self-care (01) ==
PROC: 009U3ZX Drainage of Spinal Canal, Percutaneous Approach, Diagnostic (ICD-10-PCS; principal; 2017-03-01)
DX: J32.0 Chronic maxillary sinusitis (principal); G44.89 Other headache syndrome; M54.2 Cervicalgia; J45.909 Unspecified asthma, uncomplicated
CPT/HCPCS: 96374; J1100; J1200; J2405

== ENCOUNTER 2017-03-02 18:12 | Emergency (ER) | payer OTHER ==
[2017-03-02] MEDS ORDERED: CLINDAMYCIN 150 MG CAP PO ONE (18:38)
--- NOTE | 2017-03-02 18:44 | EDPHY ---
H & P Stated Complaint: seen last night for spencer/neck pain/sent back by neurologistfor blood patch/fu Time Seen by Provider: 03/02/17 18:24 HPI/ROS: CHIEF COMPLAINT: Headache, neck pain HISTORY OF PRESENT ILLNESS: Patient is a 22-year-old female sent in by her neurologist Dr. Villalba for a blood patch and MRI of her cervical and thoracic spine. She received a Botox injection about a week ago for her migraines. She was seen yesterday for headache complain of increased neck pain and stiffness and fever at home which not have a here. They she had negative imaging and a lumbar puncture with normal CSF. She had a negative flu swab and negative rapid strep test. Her strep PCR however came back positive today. She did have erythematous throat on exam as well as sinus congestion. She was started on Bactrim for what was thought to be sinusitis because she is allergic to azithromycin and amoxicillin. She is also prescribed prednisone lidocaine patch is which she has not filled. She has not yet began taking the Bactrim. Today she spoke with her neurologist and stated that her headache is worse that she still has neck pain and that the pain is now positional. It especially hurts when she stands up and tries to walk. Does improve when she lays flat. She does not have a fever today. He recommended that she come here for blood patch. He also request that she have an MRI of her cervical and thoracic spine because she reports a history of a syrinx somewhere in her upper back/neck area that was discovered at the [facility] several years ago. She has no weakness or numbness. No recent trauma. REVIEW OF SYSTEMS: Constitutional: denies: chills, fever, recent illness, recent injury EENTM: denies: blurred vision, double vision, nose congestion Respiratory: denies: cough, shortness of breath Cardiac: denies: chest pain, irregular heart rate, lightheadedness, palpitations Gastrointestinal/Abdominal: denies: abdominal pain, diarrhea, nausea, vomiting, blood streaked stools Genitourinary: denies: dysuria, frequency, hematuria, pain Musculoskeletal: denies: joint pain, muscle pain Skin: denies: lesions, rash, jaundice, bruising Neurological: See HPI Hematologic/Lymphatic: denies: blood clots, easy bleeding, easy bruising Immunologic/allergic: denies: HIV/AIDS, transplant EXAM: GENERAL: Well-appearing, well-nourished and in no acute distress. HEAD: Atraumatic, normocephalic. EYES: Pupils equal round and reactive to light, extraocular movements intact, sclera anicteric, conjunctiva are normal. ENT: TMs normal, nares patent, oropharynx erythematous . Moist mucous membranes. NECK: Normal range of motion, supple without lymphadenopathy or JVD. LUNGS: Breath sounds clear to auscultation bilaterally and equal. No wheezes rales or rhonchi. HEART: Regular rate and rhythm without murmurs, rubs or gallops. ABDOMEN: Soft, nontender, normoactive bowel sounds. No guarding, no rebound. No masses appreciated. BACK: No CVA tenderness, no spinal tenderness, step-offs or deformities EXTREMITIES: Normal range of motion, no pitting or edema. No clubbing or cyanosis. NEUROLOGICAL: Cranial nerves II through XII grossly intact. Normal speech, normal gait. 5/5 strength, normal movement in all extremities, normal sensation PSYCH: Normal mood, normal affect. SKIN: Warm, dry, normal turgor, no visible rashes or lesions. Source: Patient, RN/MD Exam Limitations: No limitations - Personal History LMP (Females 10-55): 8-14 Days Ago Current Tetanus/Diphtheria Vaccine: Yes Tetanus Vaccine Date: <10 years [employer] student - Medical/Surgical History Hx Asthma: Yes Hx Chronic Respiratory Disease: No Hx Diabetes: No Hx Cardiac Disease: No Hx Renal Disease: No Hx Cirrhosis: No Hx Alcoholism: No Hx HIV/AIDS: No Hx Splenectomy or Spleen Trauma: No Other PMH: Raynauds, cataracts, pancreatitis, asthma, vocal cord dysfunction, IBS, back pain, post concussion synd; septum repair 10/10/15. chronic n/v fibromyalgia. daily migraines tx'd w/botox - Family History Significant Family History: No pertinent family hx - Social History Smoking Status: Never smoked Alcohol Use: Sober Drug Use: None Constitutional: Initial Vital Signs Temperature (C) 36.4 C 03/02/17 18:19 Heart Rate 75 03/02/17 18:19 Respiratory Rate 20 03/02/17 18:19 Blood Pressure 106/70 03/02/17 18:19 O2 Sat (%) 99 03/02/17 18:19 O2 Delivery Mode Room Air Allergies/Adverse Reactions: amoxicillin Allergy (Intermediate, Verified 03/02/17 18:18) facial swelling/hives azithromycin Allergy (Intermediate, Verified 03/02/17 18:18) Abdominal Pain Home Medications: Medication Instructions Recorded Spironolactone [Aldactone 50 MG 50 mg PO BID 12/03/15 (RX)] Botulinum Toxin Type A [Botox] 100 unit IJ Q90D 03/01/17 Doxycycline Hyclate [Vibramycin 100 mg PO BID 03/01/17 100 MG (*)] Sulfamethox/Tmp 800/160 mg 1 tab PO BID #14 tab 03/01/17 [Bactrim Ds] Clindamycin HCl [Clindamycin] 300 mg PO TID #30 cap 03/02/17 predniSONE 20 mg PO AD 03/02/17 Albuterol Hfa Anes Only [Proair 2 puffs IH QID 03/04/17 Hfa Icu (*)] Fexofenadine HCl 60 mg PO BID 03/04/17 Medical Decision Making ED Course/Re-evaluation: 6:50 p.m. the patient is a well-appearing young female with a host of chronic medical conditions including chronic migraines. I have paged anesthesia who will consult for blood patch. I have ordered an MRI. I suspect that the majority of her symptoms are likely due to strep throat including the muscle/ neck aches and low-grade fever at home. She states that when she takes amoxicillin she has a rash and swelling in her mouth. She states that she can take other penicillins without difficulty. She states that the 1 time when she took azithromycin she had pancreatitis afterwards and they told her not to take it again. He I will have her discontinue the Bactrim and start her on clindamycin. 9:00 p.m. the patient is back from MRI and anesthesia is here to perform a blood patch. 10:50 p.m. the patient is feeling much better after the blood patch. Her MRI results are back. Nothing new or concerning. She is eager to go. She declines further workup or testing at this time Differential Diagnosis: Partial list of the Differential diagnosis considered include but were not limited to; post LP headache, meningitis, migraine and although unlikely based on the history and physical exam, I also considered aneurysm, hematoma, hemorrhage, trauma. I discussed these differential diagnoses and the plan with the patient as well as the usual and expected course. The patient understands that the diagnosis is provisional and that in medicine we are not always correct and that further workup is often warranted. Usual and customary warnings were given. All of the patient's questions were answered. The patient was instructed to return to the emergency department should the symptoms at all worsen or return, otherwise to followup with the physician as we discussed. - Data Points Medications Given: Discontinued Medications Clindamycin (Clindamycin) 300 mg PO EDNOW ONE PRN Reason: Protocol Stop: 03/02/17 18:39 Last Admin: 03/02/17 18:46 Dose: 300 mg Diazepam (Valium) 5 mg PO EDNOW ONE Stop: 03/02/17 18:59 Last Admin: 03/02/17 19:01 Dose: 5 mg Sodium Chloride (Ns) 1,000 mls @ 0 mls/hr IV EDNOW ONE; Wide Open PRN Reason: Protocol Stop: 03/02/17 18:56 Last Admin: 03/02/17 19:01 Dose: 1,000 mls Midazolam HCl (Versed) 2 mg IVP ONCALL ONE Stop: 03/02/17 21:37 Last Admin: 03/02/17 22:13 Dose: 2 mg Departure - Departure Disposition: Home, Routine, Self-Care Clinical Impression: Post lumbar puncture headache, Strep throat Migraine Qualifiers: Migraine type: unspecified Status migrainosus presence: without status migrainosus Intractability: not intractable Qualified Code(s): G43.909 - Migraine, unspecified, not intractable, without status migrainosus Condition: Fair Instructions: Strep Throat (ED), Migraine Headache (ED), Lumbar Puncture (ED) Referrals: NONE *PRIMARY CARE P,. [Primary Care Provider] - As per Instructions Alejandro Villalba DO [Medical Doctor] - As per Instructions Prescriptions: Clindamycin HCl [Clindamycin] 300 mg PO TID #30 cap
[2017-03-02] MEDS ORDERED: NS 1,000 ML IV ONE (18:55)
[2017-03-02] MEDS ORDERED: DIAZEPAM 5 MG TAB PO ONE (18:58)
[2017-03-02] MEDS ORDERED: GADOBUTROL 10 ML VIAL IVP ONE (20:01)
[2017-03-02] MEDS ORDERED: MIDAZOLAM 2 MG/2 ML VIAL IVP ONE (21:36)
--- NOTE | 2017-03-02 21:36 | PDCONSULT ---
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 Hx. for chronic migraines. Lumbar puncture 03/01/17 to rule out infection. Clear spinal fluid. Negative for infection. Headache increases with standing, sitting up decreases with supine. Frontal headache. No fever chills Risk of epidural blood patch discussed. Infection, Dural puncture. Consent obtained. Vital 108/72 Sao2 100 RLD position. Right arm CHG prep. Versed 2 mg given. Back CHG prep draped. Lidocaine 1.5 % placed L4-5. 18 gu tuohy needle loss of resistance to air. Lidocaine 1.5 % .75 ml placed. 20 ml blood from right arm. !7 ml placed epidural. No pain with blood injection. No complications noted. Bp 123/83 Informed to remain supine tonight. Return to ER if fever, back pain, return of Headache.
[2017-03-02] MEDS ORDERED: MIDAZOLAM 2 MG/2 ML VIAL ONE (21:43)
[2017-03-03 00:01] VITALS: BP 114/68; PULSE 79; RESP 16; TEMP 98.1; O2SAT 95
== END 2017-03-02 23:25 | disposition home or self-care (01) ==
DX: G97.1 Other reaction to spinal and lumbar puncture (principal); J02.0 Streptococcal pharyngitis; G43.909 Migraine, unspecified, not intractable, without status migrainosus; J45.909 Unspecified asthma, uncomplicated; E86.9 Volume depletion, unspecified
CPT/HCPCS: 96374; A9585; J2250

== ENCOUNTER 2017-03-03 14:02 | Emergency (ER) | payer OTHER ==
[2017-03-03] MEDS ORDERED: NS 500 ML IV ONE (14:30)
[2017-03-03] MEDS ORDERED: HYDROmorphONE/DILAUDID 1 MG/ML INJ IVP ONE (14:30)
[2017-03-03 15:03] LABS: % IMMATURE GRANULYOCYTES 0.5 % (0.0-1.1); ABSOLUTE IMMATURE GRANULOCYTES 0.07 10^3/uL (0.00-0.10); ADD DIFF? NO; ADD MORPH? NO; ADD SCAN? NO; ATYPICAL LYMPHOCYTE FLAG 0 (0-99); FRAGMENT RBC FLAG 0 (0-99); HEMOGLOBIN 15.8 g/dL (12.6-16.3); LEFT SHIFT FLG 0 (0-99); LIPEMIA HEMOLYSIS FLAG 80 (0-99); MEAN CELL HEMOGLOBIN 30.9 pg (27.9-34.1); MEAN CELL HEMOGLOBIN CONCENTR. 33.6 g/dL (32.4-36.7); MEAN PLATELET VOLUME 9.6 fL (8.7-11.7); PLATELET CLUMPS FLAG 0 (0-99); PLATELET COUNT 293 10^3/uL (150-400); RED BLOOD CELL COUNT 5.11 10^6/uL (4.18-5.33); RED CELL DISTRIBUTION WIDTH 12.6 % (11.5-15.2)
[2017-03-03] MEDS ORDERED: LORazepam 2 MG/ML INJ IVP ONE (15:05)
[2017-03-03 15:29] LABS: ANION GAP 16 mEq/L (8-16); CALCIUM 10.3 mg/dL (8.5-10.4); CARBON DIOXIDE 22 mEq/l (22-31); CHLORIDE 103 mEq/L (97-110); CREATININE 0.8 mg/dL (0.6-1.0); GLOMERULAR FILTRATION RATE > 60; GLUCOSE 108 mg/dL (70-100); POTASSIUM 4.3 mEq/L (3.5-5.2); SODIUM 141 mEq/L (134-144)
[2017-03-03] MEDS ORDERED: KETOROLAC 30 MG/1 ML SDV IVP ONE (16:37)
--- NOTE | 2017-03-03 16:44 | EDPHY ---
H & P Time Seen by Provider: 03/03/17 14:16 HPI/ROS: HPI Back pain. 22-year-old female by private vehicle. This patient was seen in our emergency department for headache, neck pain and thoracic pain several days ago. She had a lumbar puncture performed at that time. This was unremarkable. She also had a cervical spine and thoracic spine MRI which was done and the studies were normal. She then had a postoperative LP headache that came on yesterday. She had a blood patch placed. She returns to the emergency department complaining of worsening lower back pain at the site of her lumbar puncture and blood patch. She is also complaining of tingling and numbness in her lower extremities and pain so bad that she cannot go to the bathroom. ROS: Constitutional: No fever, no chills. As above. Eyes: No discharge. No changes in vision. ENT: No sore throat. No nasal congestion or rhinorrhea. Respiratory: No cough. No shortness of breath. Cardiac: No chest pain, no palpitations. Gastrointestinal: No abdominal pain, no vomiting, no diarrhea. Genitourinary: No hematuria. No dysuria or increased frequency with urination. Musculoskeletal: Back pain. As above. No myalgias or arthralgias. Skin: No rashes. Neurological: No headache. As above. Past medical history: Raynaud's, cataracts, vocal cord dysfunction, pancreatitis, asthma, IBS, chronic back pain, post concussion syndrome, fibromyalgia, daily migraines treated with Botox. As above. Social history: Here with her boyfriend. No alcohol. Nonsmoker. Physical Exam: General Appearance: Alert, tearful, emotionally labile. This patient is responding to questions appropriately and in full sentences. This patient appears well-hydrated and well-nourished. Eyes: Pupils equal and round no pallor or injection. No lid edema, erythema or injection. Back exam: She has midline lumbar spine tenderness on palpation at L4-L5. The lumbar puncture site appears clean dry and intact and without any swelling, erythema or warmth on palpation. Her sensory and motor function are normal in her bilateral upper and bilateral lower extremities in all myotomes in dermatomes. She has a negative same side and cross-eyed straight leg raise test. Respiratory: There are no retractions, lungs are clear to auscultation with good air movement bilaterally. Cardiovascular: Regular rate and rhythm. No murmur. Gastrointestinal: Abdomen is soft and nontender, no masses, bowel sounds normal. No focal tenderness at McBurney's point. No Rubio sign. Neurological: Motor sensory function is grossly intact. Cranial nerves are normal. Skin: Warm and dry, no rashes. Musculoskeletal: Neck is supple and nontender. Extremities are symmetrical. All joints range without pain or impingement. Psychiatric: No agitation. No depression. Database: EKG: Imaging: MRI of lumbar spine: Negative. Results were discussed with staff radiologist Dr. Asher Mg. Procedures: Emergency department course: IV was placed. She was placed on a monitor. Vital signs reviewed, afebrile, mildly tachycardic. Vital signs otherwise normal. I have reviewed her medical records. She has been seen here multiple times in the past for headaches N/V, neck pain and pain related issues. I have reviewed the results of her lumbar puncture from a few days ago as well as her MRIs of her cervical and thoracic spine. All of this is unremarkable. She will be sent for a lumbar spine MRI. She was given 0.5 mg of IV hydromorphone initially and 0.5 mg of IV Ativan prior to MRI. 4:45 p.m., patient re-evaluated. She is asking for more pain medications. I see no contraindications to Toradol based on the results of her MRI. She has no active bleeding. No contraindications to NSAIDs. No history of peptic ulcers or renal dysfunction. She is asking why she is having so much pain in her back. I explained to her that all of her studies, which have been extensive over the last week, have been unremarkable. I discussed follow-up with [facility] for re-evaluation and further management. She does seem somewhat agreeable to this. I will have case management see her as well. 5:30 p.m., patient has been seen by case management. Plan will be to discharge her to home and FU with [facility]. She does not meet criteria for admission. Return to emergency department precautions were discussed with her and her boyfriend. They both understand her follow-up with [facility]. All of her questions were answered. She was discharged in good condition. Her boyfriend is driving. 8:30 p.m., I spoke with anesthesiologist Dr. Bucio in the emergency department. He did the blood patch procedure. He contacted the patient. The patient told him that she was still having pain. He feels that the patient does not have a emergent neurologic, infectious or surgical problem but instructed the patient should return to the emergency department to be re- evaluated and admitted for observation and pain control. The patient told him that she would do this. 9:00 p.m., I spoke with Dr. Noman Quispe who is taking over the emergency department for me at the end of my shift. He is aware that this patient will return and will admit her as above. Differential Diagnosis: The differential diagnosis on this patient includes but is not limited to lumbar strain, psychosomatic etiology of pain. Epidural hematoma, epidural compression syndrome, fracture, subluxation, dislocation, meningitis, encephalitis, epidural abscess, AAA, cholecystitis, pancreatitis unlikely. This represents a partial list of diagnoses considered. These considerations are based on history, physical exam, past history, reassessment and diagnostic testing. Smoking Status: Never smoked Constitutional: Initial Vital Signs Temperature (C) 36.8 C 03/03/17 14:03 Heart Rate 118 H 03/03/17 14:03 Respiratory Rate 16 03/03/17 14:03 Blood Pressure 135/100 H 03/03/17 14:03 O2 Sat (%) 99 03/03/17 14:03 O2 Delivery Mode Room Air Allergies/Adverse Reactions: amoxicillin Allergy (Intermediate, Verified 03/02/17 18:18) facial swelling/hives azithromycin Allergy (Intermediate, Verified 03/02/17 18:18) Abdominal Pain Home Medications: Medication Instructions Recorded Spironolactone 12/03/15 Botulinum Toxin Type A [Botox] 100 unit IJ 03/01/17 Doxycycline Hyclate [Vibramycin 100 mg PO BID 03/01/17 100 MG (*)] Sulfamethox/Tmp 800/160 mg 1 tab PO BID #14 tab 03/01/17 [Bactrim Ds] Taylor Allergy 03/02/17 Clindamycin HCl [Clindamycin] 300 mg PO TID #30 cap 03/02/17 Prednisone 03/02/17 Cyclobenzaprine [Flexeril 10 MG 10 mg PO TID #9 tab 03/03/17 (*)] Medical Decision Making - Data Points Laboratory Results: Laboratory Results 03/03/17 14:20 03/03/17 14:20 Medications Given: Discontinued Medications Hydromorphone HCl (Dilaudid) 0.5 mg IVP EDNOW ONE Stop: 03/03/17 14:31 Last Admin: 03/03/17 14:38 Dose: 0.5 mg Sodium Chloride (Ns) 500 mls @ 0 mls/hr IV EDNOW ONE; Wide Open PRN Reason: Protocol Stop: 03/03/17 14:31 Last Admin: 03/03/17 14:38 Dose: 500 mls Ketorolac Tromethamine (Toradol) 30 mg IVP EDNOW ONE Stop: 03/03/17 16:38 Last Admin: 03/03/17 16:52 Dose: 30 mg Lorazepam (Ativan Injection) 0.5 mg IVP EDNOW ONE Stop: 03/03/17 15:06 Last Admin: 03/03/17 15:20 Dose: 0.5 mg Departure - Departure Disposition: Home, Routine, Self-Care Clinical Impression: Back pain Condition: Good Instructions: Back Pain (ED) Additional Instructions: Read and follow provided instructions. Follow-up with the back pain specialists at [facility] as discussed within the next 1-2 days for re-evaluation and further management. Ibuprofen dosin mg every 6 hours with meals for the next 3 days only. You can start taking this medication tomorrow morning. Take medication as prescribed only. Return to the emergency department for worsening pain, fever, weakness in your lower extremities, bowel or bladder incontinence or other serious concerns. Referrals: [facility] [Outside] - As per Instructions Prescriptions: Cyclobenzaprine [Flexeril 10 MG (*)] 10 mg PO TID #9 tab
[2017-03-03 17:31] VITALS: BP 133/87; PULSE 86; RESP 20; TEMP 97.9; O2SAT 95
--- NOTE | 2017-03-03 17:43 | ASMTCMCOM ---
CM Note CM Note Notes: Met with patient to provide emotional support and encouragement regarding her concerns for acute on chronic discomfort and current c/o back pain "due to recent spinal tap and blood patch" Patient presented to the ER with c/o continued "inability to walk and back pain" since her procedures (lumbar puncture/blood patch). She has had a thorough workup in the ER today and is very emotional and upset when I meet her. She tells me she would like to be admitted for pain management. She tells me that she has a chronic pain doctor but that they are not helping her. She also states that she has an appointment scheduled to see another pain management doctor soon I have attempted to reassure patient that all of her testing today in the ER indicates that she does not have complications from her recent LP/blood patch and that while I validate her discomfort, the hospital does not provide chronic pain management services. Patient states that she cannot walk and that her pain in her back is "acute" and therefore not a chronic issue. I again validate this frustration and encourage her to follow up with a pain doctor. She is accompanied by a friend who appears to be very supportive and is encouraging her to relax and allow him to help get her home. Patient gets up to WC in my presence with minimal assistance from her friend and goes to the restroom prior to my leaving the room Date Signed: 03/03/2017 05:42 PM Electronically Signed By:Dana Yost RN
== END 2017-03-03 17:34 | disposition home or self-care (01) ==
DX: M54.5 Low back pain (principal); J45.909 Unspecified asthma, uncomplicated; E86.9 Volume depletion, unspecified
CPT/HCPCS: 96374; J1170; J1885; J2060

== ENCOUNTER 2017-03-04 18:04 | Observation (INO) | payer OTHER ==
[2017-03-04] MEDS ORDERED: ONDANSETRON 4 MG/2 ML VIAL ONE (19:30)
[2017-03-04] MEDS ORDERED: NS 1,000 ML IV ONE (19:31)
[2017-03-04] MEDS ORDERED: ONDANSETRON 4 MG/2 ML VIAL IVP ONE (19:31)
[2017-03-04] MEDS ORDERED: KETOROLAC 15 MG/1 ML SDV IVP/IM ONE (19:33)
[2017-03-04] MEDS ORDERED: DEXAMETHASONE 4 MG/ML VIAL IVP ONE (19:33)
[2017-03-04] MEDS ORDERED: KETAMINE 100 MG/10 ML SYR IVP ONE (19:34)
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
[2017-03-04] MEDS ORDERED: HALOPERIDOL LACT 5 MG/ML INJ IVP ONE (21:10)
[2017-03-04] MEDS ORDERED: HALOPERIDOL LACT 5 MG/ML INJ ONE (21:11)
[2017-03-04] MEDS ORDERED: ONDANSETRON 4 MG/2 ML VIAL IVP PRN (22:54)
[2017-03-04] MEDS ORDERED: LORazepam 0.5 MG TAB PO PRN (22:54)
[2017-03-04] MEDS ORDERED: PROMETHAZINE HCL 25 MG/ML INJ IVP PRN (22:54)
[2017-03-04] MEDS ORDERED: ALBUTEROL 3 ML DEYVIAL IH PRN (22:54)
[2017-03-04] MEDS ORDERED: ACETAMINOPHEN 325 MG TAB PO PRN (22:54)
[2017-03-04] MEDS: HYDROCODONE/APAP 5/325 TAB PO PRN (23:28)
[2017-03-05] MEDS: HYDROCODONE/APAP 5/325 TAB PO PRN (02:59)
[2017-03-05] MEDS ORDERED: PREDNISONE 20 MG PO SCH (03:30)
[2017-03-05] MEDS ORDERED: BACLOFEN 10 MG TAB PO PRN (03:44)
[2017-03-05] MEDS ORDERED: AMITRIPTYLINE HCL 50 MG TAB PO SCH (03:45)
[2017-03-05] MEDS ORDERED: LIDOCAINE 5% 1 EA PATCH TD SCH (04:00)
[2017-03-05] MEDS: predniSONE 20 MG TAB PO SCH ×2 (04:40→09:37)
[2017-03-05 04:50] LABS: % IMMATURE GRANULYOCYTES 0.7 % (0.0-1.1); ABSOLUTE IMMATURE GRANULOCYTES 0.07 10^3/uL (0.00-0.10); ADD DIFF? NO; ADD MORPH? NO; ADD SCAN? NO; ATYPICAL LYMPHOCYTE FLAG 10 (0-99); FRAGMENT RBC FLAG 0 (0-99); HEMATOCRIT 41.3 % (38.0-47.0); HEMOGLOBIN 14.1 g/dL (12.6-16.3); LEFT SHIFT FLG 0 (0-99); LIPEMIA HEMOLYSIS FLAG 90 (0-99); MEAN CELL HEMOGLOBIN 31.2 pg (27.9-34.1); MEAN CELL HEMOGLOBIN CONCENTR. 34.1 g/dL (32.4-36.7); MEAN CELL VOLUME 91.4 fL (81.5-99.8); MEAN PLATELET VOLUME 9.4 fL (8.7-11.7); PLATELET CLUMPS FLAG 0 (0-99); PLATELET COUNT 260 10^3/uL (150-400); RED BLOOD CELL COUNT 4.52 10^6/uL (4.18-5.33); RED CELL DISTRIBUTION WIDTH 12.8 % (11.5-15.2)
[2017-03-05 05:31] LABS: ALANINE AMINOTRANSFERASE 29 IU/L (9-52); ALBUMIN 3.9 g/dL (3.5-5.0); ALKALINE PHOSPHATASE 57 IU/L (38-126); ANION GAP 9 mEq/L (8-16); ASPARTATE AMINOTRANSFERASE 15 IU/L (14-46); BILIRUBIN,TOTAL 0.2 mg/dL (0.1-1.4); CALCIUM 9.6 mg/dL (8.5-10.4); CARBON DIOXIDE 26 mEq/l (22-31); CHLORIDE 101 mEq/L (97-110); CREATININE 0.8 mg/dL (0.6-1.0); GLOMERULAR FILTRATION RATE > 60; GLUCOSE 128 mg/dL (70-100); POTASSIUM 4.3 mEq/L (3.5-5.2); SODIUM 136 mEq/L (134-144); TOTAL PROTEIN 6.3 g/dL (6.3-8.2)
[2017-03-05] MEDS ORDERED: OXYCODONE/APAP 5/325 TAB PO PRN (06:32)
[2017-03-05] MEDS ORDERED: DOXYCYCLINE HYCLATE 100 MG CAP/TAB PO SCH (09:00)
[2017-03-05] MEDS ORDERED: FEXOFENADINE HCL 60 MG PO SCH (09:00)
[2017-03-05] MEDS ORDERED: CLINDAMYCIN 300MG PO SCH (09:00)
[2017-03-05] MEDS ORDERED: SPIRONOLACTONE 50 MG TAB PO SCH (09:00)
--- NOTE | 2017-03-05 10:41 | PDGENHP ---
History and Physical - Chief Complaint back pain - History of Present Illness Source - patient provides history and appears reliable. EMR reviewed. HPI - Pleasant 22 yo F with pmhx significant for daily migraine YAO, chronic pain , asthma, fibromyalgia, chronic nausea/vomiting who presents to the ED with complaints of numbness/tingling in her feet bilaterally and severe back pain. Patient has been seen in the ED daily for the last several days with multiple complaints. Most recently patient presented with complaints of neck pain/ stiffness and fever after she underwent botox injection in her neck with neurologist for treatment of migraine YAO. workup in ED included LP which was negative for evidence of meningitis. Patient subsequently presented to the ED with c/o LE weakness and positional headache. She underwent a blood patch day before and subsequently presented today with complaints of inability to walk and was carried in to ED. Patient denies any bladder/bowel incontinence or retention. She reports only some numnbess/tingling to the bottom of both feet but no focal deficits. She has persistent migraine YAO without photophobia. Patient underwent MRI lumbar spine day previously and that was noted to be normal. On the medical floor patient complaining of significant back pain lumbar paraspinous region with any movement but has been ambulating to the bathroom without assistance per RN just using slowed gait. Patient received dosing of morphine,ketamine,haldol, ativan with reports of improvement in her back pain. patient notes aristeo is does nothing for her pain and requests morphine. several alternative po medications were suggested with patient noting "they don't work. " History Information - Allergies/Home Medication List Allergies/Adverse Reactions: amoxicillin Allergy (Intermediate, Verified 03/02/17 18:18) facial swelling/hives azithromycin Allergy (Intermediate, Verified 03/02/17 18:18) Abdominal Pain Home Medications: Spironolactone [Aldactone 50 MG (RX)] 50 mg PO BID 12/03/15 [Last Taken 09:00] Botulinum Toxin Type A [Botox] 100 unit IJ Q90D 03/01/17 [Last Taken 02/13/17] Doxycycline Hyclate [Vibramycin 100 MG (*)] 100 mg PO BID 03/01/17 [Last Taken 03/04/17 09:00] predniSONE 20 mg PO AD 03/02/17 [Last Taken 03/04/17] Albuterol Hfa Anes Only [Proair Hfa Icu (*)] 2 puffs IH QID 03/04/17 [Last Taken 1 Week Ago ~02/25/17] Fexofenadine HCl 60 mg PO BID 03/04/17 [Last Taken 03/04/17 09:00] I have personally reviewed and updated: family history, medical history, social history, surgical history - Past Medical History Additional medical history: asthma, IUD, daily migraine YAO, IBS, coval cord dysfunction. Pott's disease, chronic sinusitis, hx pancreatitis, anxiety, depression, ADHD, OCD. congenital cataracts. - Surgical History Additional surgical history: septum repair. sinus surgery x 3. rib harvest for rhinoplasty. - Social History Smoking Status: Never smoked Alcohol Use: Rarely Drug Use: Marijuana (daily use) Additional social history: lives with 2 roommate. [employer] student. COR - FULL. desires mother Marcelina Melendez to act as proxy if needed. Review of Systems Review of Systems: Constitutional: Reports: malaise, weakness, other (subjective fevers/chills several days ago) EENMT: Reports: nose congestion (chronic). Denies: blurred vision, double vision, sore throat Cardiac: Reports: no symptoms. Denies: chest pain, edema Respiratory: Reports: cough (dry cough last few days), shortness of breath ( patient reports a baseline SOB) Gastrointestinal: Reports: vomitting, abdominal pain (chronic lower abdominal pain), nausea Genitourinary: Denies: dysuria, incontinence Muscolosketal: Reports: back pain, joint pain, muscle pain Skin: Reports: no symptoms, rash (5 days ago axillary rash) Neurological: Reports: anxiety, depressed, headache, numbness (bilateral plantar aspec of both feet.), weakness (bilateral lower legs. ), other (no SI/ HI. ). Denies: tremors Physical Exam Physical Exam: Selected Entries 03/04/17 03/05/17 18:08 03:46 Blood Pressure Automatic Method Heart Rate 80 59 L Respiratory 16 16 Rate O2 Sat (%) 98 94 Temperature (C) 36.7 C 36.7 C Blood Pressure 109/84 H 103/69 Mean Arterial 92 80 Pressure (MAP) Activity During At Rest Vital Signs O2 Delivery Room Air Room Air Mode Blood Pressure Left Source Upper Arm Temperature Oral Oral Source Heart Rate Heart Rate/ Source Monitor Temp Pulse Resp BP Pulse Ox 36.9 C 58 L 20 88/59 L 99 03/05/17 08:47 03/05/17 09:08 03/05/17 08:47 03/05/17 09:08 03/05/17 08:47 Constitutional: no apparent distress (while at rest. pt grimaces and cries out when trying to sit up in bed. ), uncomfortable Eyes: PERRL, anicteric sclera, EOMI, No scleral injection Ears, Nose, Mouth, Throat: moist mucous membranes, no oral mucosal ulcers, No poor dentition ([id number]) Cardiovascular: regular rate and rhythym, no murmur, rub, or gallop, No systolic murmur, No edema Peripheral Pulses: 2+: dorsalis-pedis (R), dorsalis-pedis (L) Respiratory: no respiratory distress, no rales or rhonchi, clear to auscultation Gastrointestinal: normoactive bowel sounds, soft, non-tender abdomen, no palpable masses, No guarding, No rebound, No distension Genitourinary: no bladder tenderness, No collins in urethra Skin: warm, normal color, No erythema, No rash Musculoskeletal: full muscle strength, No generalized weakness Neurologic: AAOx3, other (nonfocal exam. 2+ DTR patella bilaterally.), No numbness, No CN II-XII Intact Psychiatric: anxious, depressed, No poor insight, No poor judgement, No poor memory Lab Data & Imaging Review 03/05/17 04:33 03/05/17 04:33 WBC 9.99 10^3/uL (3.80-9.50) H 03/05/17 04:33 RBC 4.52 10^6/uL (4.18-5.33) 03/05/17 04:33 Hgb 14.1 g/dL (12.6-16.3) 03/05/17 04:33 Hct 41.3 % (38.0-47.0) 03/05/17 04:33 MCV 91.4 fL (81.5-99.8) 03/05/17 04:33 MCH 31.2 pg (27.9-34.1) 03/05/17 04:33 MCHC 34.1 g/dL (32.4-36.7) 03/05/17 04:33 RDW 12.8 % (11.5-15.2) 03/05/17 04:33 Plt Count 260 10^3/uL (150-400) 03/05/17 04:33 MPV 9.4 fL (8.7-11.7) 03/05/17 04:33 Neut % (Auto) 84.2 % (39.3-74.2) H 03/05/17 04:33 Lymph % (Auto) 13.6 % (15.0-45.0) L 03/05/17 04:33 Rogers % (Auto) 1.3 % (4.5-13.0) L 03/05/17 04:33 Eos % (Auto) 0.0 % (0.6-7.6) L 03/05/17 04:33 Baso % (Auto) 0.2 % (0.3-1.7) L 03/05/17 04:33 Nucleat RBC Rel Count 0.0 % (0.0-0.2) 03/05/17 04:33 Absolute Neuts (auto) 8.41 10^3/uL (1.70-6.50) H 03/05/17 04:33 Absolute Lymphs (auto) 1.36 10^3/uL (1.00-3.00) 03/05/17 04:33 Absolute Monos (auto) 0.13 10^3/uL (0.30-0.80) L 03/05/17 04:33 Absolute Eos (auto) 0.00 10^3/uL (0.03-0.40) L 03/05/17 04:33 Absolute Basos (auto) 0.02 10^3/uL (0.02-0.10) 03/05/17 04:33 Absolute Nucleated RBC 0.00 10^3/uL (0-0.01) 03/05/17 04:33 Immature Gran % 0.7 % (0.0-1.1) 03/05/17 04:33 Immature Gran # 0.07 10^3/uL (0.00-0.10) 03/05/17 04:33 Sodium 136 mEq/L (134-144) 03/05/17 04:33 Potassium 4.3 mEq/L (3.5-5.2) 03/05/17 04:33 Chloride 101 mEq/L (97-110) 03/05/17 04:33 Carbon Dioxide 26 mEq/l (22-31) 03/05/17 04:33 Anion Gap 9 mEq/L (8-16) 03/05/17 04:33 BUN 13 mg/dL (7-23) 03/05/17 04:33 Creatinine 0.8 mg/dL (0.6-1.0) 03/05/17 04:33 Estimated GFR > 60 03/05/17 04:33 Glucose 128 mg/dL (70-100) H 03/05/17 04:33 Calcium 9.6 mg/dL (8.5-10.4) 03/05/17 04:33 Magnesium 2.0 mg/dL (1.6-2.3) 03/05/17 04:33 Total Bilirubin 0.2 mg/dL (0.1-1.4) 03/05/17 04:33 AST 15 IU/L (14-46) 03/05/17 04:33 ALT 29 IU/L (9-52) 03/05/17 04:33 Alkaline Phosphatase 57 IU/L (38-126) 03/05/17 04:33 Total Protein 6.3 g/dL (6.3-8.2) 03/05/17 04:33 Albumin 3.9 g/dL (3.5-5.0) 03/05/17 04:33 Imaging Review: MRI Lumbar Spine Without Contrast History: Lower extremity weakness and low back pain. History of lumbar puncture and blood patch yesterday. Technique: MRI is performed the lumbar spine using a 1.5 Rubina MRI system. Sagittal and axial imaging was obtained with standard imaging sequences. Findings: No significant bone marrow abnormality is visualized. No evidence for fracture or subluxation. Disks are hydrated and the height is maintained. The conus is visualized at T12-L1 and is unremarkable. Cauda equina is unremarkable. No evidence for epidural hematoma. No significant disk bulge, protrusion, or extrusion. No significant spinal canal or neural foraminal encroachment. Impression: Unremarkable MRI lumbar spine without contrast. Visualized and Interpreted Chest x-ray results: Yes Assessment & Plan Assessment: 1. back pain - superficial TTP along paraspinous muscles. heat, lidoderm patch. advised patient pain may be difficult to control given her history. I reviewed several options for pain management that were nonnarcotic and patient reported "they don't work" including gabapentin, lyrica, baclofen. Patient requesting IV medications received in ER but advised hospitalist will be very limited in what can be prescribed at discharge. also noted ketamine and haldol will not be administered on medical floor for pain control. 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 Patient without any acute issues on recent MRI and nothing focal is evidence on exam. I do not feel acute neurologic consultation is required but consider follow up with patient primary Neurologst Dr. Christianson. patient noting some decreased sensation and denies any history of ascending numbness/tingling or weakness so less likely GBS as concern. I think acute pain is local with recent LP/blood patch. PT/OT consultation. 2. migraine YAO - baseline. no acute complaints. FEN - encourage po hydration. diet as tolerated. PPX - SCDs. holding anticoagulation s/p LP. COR - full. Disp - admit to observation on medical floor.
[2017-03-05 12:09] VITALS: TEMP 98.2
[2017-03-05 15:47] VITALS: PULSE 62; O2SAT 100
[2017-03-05 16:03] VITALS: BP 90/72; RESP 14
--- NOTE | 2017-03-05 16:06 | ASMTCMCOM ---
CM Note CM Note Notes: Pt has intractable migraine, has been seen in ED three times this month. Chart review indicates pt lives in apartment with roommates OT rec home vs. outpatient, PT rec is TBD and will continue to assess. CM to follow. Date Signed: 03/05/2017 04:05 PM Electronically Signed By:ELPIDIO Conklin
[2017-03-05] MEDS ORDERED: KETOROLAC 30 MG/1 ML SDV IVP ONE (16:26)
--- NOTE | 2017-03-05 17:06 | HOSPPROG ---
Hospitalist Progress Note Assessment/Plan: DISCHARGE DIAGNOSES: -partial headache after previous lumbar puncture and unsuccessful blood patch from previous ER visits -local back pain likely related to lumbar puncture and blood patch: HOSPITAL COURSE SUMMARY: This patient has started off with headache and neck stiffness a few days ago and was initially seen here in the ER to rule out meningitis. Lumbar puncture at that time showed no evidence of meningitis. The and neck stiffness has resolved. However the patient did developed postural headache and came back into the ER and had blood patch. The blood patch give some very brief relief of pain but since then she continues to have a remarkable postural headache. There is also some local pain at the area of the lumbar puncture and blood patch. She does not have fevers chills or sweats. Here in the hospital the patient initially received some ketamine and some narcotic in the ER. After this she declined narcotics as she felt that these medicines were really only partially effective at relieving pain and she did not like the side effects. She did take 1 dose of Toradol at 50 mg which she found partially effective. Otherwise she has been using a Lidoderm patch and muscle relaxer with partial effectiveness. She is felt to have ongoing post lumbar puncture pop postural headache. We discussed her situation in detail. At this point I recommend ongoing use of muscle relaxers, anti-inflammatory medications, Lidoderm patch, and benzodiazepine. Is strongly recommended that she remain supine until the post lumbar puncture headache resolves. The patient would like to go home. She lives only a few minutes away from here at on the campus and I think is reasonable to take the [address] and get back in bed at home at this point. However she has a flight to go home to [place] tomorrow. Strongly recommending that she delay that flight until she has a notable improvement in her postural headaches and she will talk to her mother and try to see if she can arrange for a later flight home. PENDING TEST RESULTS: None MEDICATION CHANGES: Addition of Valium as a muscle relaxer Addition of Flexeril Addition of Voltaren Addition of Lidoderm patches FOLLOW-UP PLAN: With the words due to health service, and/or with her primary care physician Greater than 35 minutes bedside and care coordination time today Objective: Vital Signs Temp Pulse Resp BP Pulse Ox 36.8 C 62 14 90/72 L 100 03/05/17 15:45 03/05/17 16:02 03/05/17 16:02 03/05/17 16:02 03/05/17 16:02 Laboratory Results 03/05/17 04:33 03/05/17 04:33 03/04/17 03/05/17 03/06/17 06:59 06:59 06:59 Intake Total 1000 Output Total 1000 Balance 0 ICD10 Worksheet Patient Problems: Problems Problem Status Onset Intractable migraine Acute Paresthesias Acute Migraine Acute Post lumbar puncture headache Acute Strep throat Acute
--- NOTE | 2017-03-05 20:36 | PDDCSUM ---
Discharge Summary Discharge Summary: DISCHARGE DIAGNOSES: -ongoing postural headache after recent lumbar puncture and failed blood patch -local back pain likely related to lumbar puncture and blood patch: HOSPITAL COURSE SUMMARY: This patient has started off with headache and neck stiffness a few days ago and was initially seen here in the ER to rule out meningitis. Lumbar puncture at that time showed no evidence of meningitis. The and neck stiffness has resolved. However the patient did developed postural headache and came back into the ER and had blood patch. The blood patch give some very brief relief of pain but since then she continues to have a remarkable postural headache. There is also some local pain at the area of the lumbar puncture and blood patch. She does not have fevers chills or sweats. Here in the hospital the patient initially received some ketamine and some narcotic in the ER. After this she declined narcotics as she felt that these medicines were really only partially effective at relieving pain and she did not like the side effects. She did take 1 dose of Toradol at 50 mg which she found partially effective. Otherwise she has been using a Lidoderm patch and muscle relaxer with partial effectiveness. She is felt to have ongoing post lumbar puncture pop postural headache. We discussed her situation in detail. At this point I recommend ongoing use of muscle relaxers, anti-inflammatory medications, Lidoderm patch, and benzodiazepine. Is strongly recommended that she remain supine until the post lumbar puncture headache resolves. The patient would like to go home. She lives only a few minutes away from here at on the campus and I think is reasonable to take the [address] and get back in bed at home at this point. However she has a flight to go home to [place] tomorrow. Strongly recommending that she delay that flight until she has a notable improvement in her postural headaches and she will talk to her mother and try to see if she can arrange for a later flight home. PENDING TEST RESULTS: None MEDICATION CHANGES: Addition of Valium as a muscle relaxer Addition of Flexeril Addition of Voltaren Addition of Lidoderm patches FOLLOW-UP PLAN: With the [facility], and/or with her primary care
[2017-03-05] MEDS ORDERED: PATCH REMOVAL 1 EA PATCH TD SCH (21:00)
--- NOTE | 2017-03-06 14:16 | ASDISCHSUM ---
Discharge Information Plan Status:Home with No Needs Medically Cleared to Leave: Discharge Date:03/05/2017 05:43 PM CM D/C Disposition: ADT D/C Disposition:Home, Routine, Self-Care Projected Discharge Date:03/05/2017 05:43 PM Transportation at D/C: Discharge Delay Reason: Follow-Up Date:03/05/2017 05:43 PM Discharge Slot: Final Diagnosis: Placement Information Patient Contact Information Contact Name:TODD Relationship:Mother Address:[address] Work Phone: City:[place] Alternate Phone: [facility]/Zip Code:[place] [address] Email: Financial Information Financial Class:HMO and PPO Plans Primary Plan Desc:[employer] Primary Plan Number:[id number] Secondary Plan Desc: Secondary Plan Number: Assessment Information [facility] CM Progress Note CM Note CM Note Notes: Pt has intractable migraine, has been seen in ED three times this month. Chart review indicates pt lives in apartment with roommates OT rec home vs. outpatient, PT rec is TBD and will continue to assess. CM to follow. Date Signed: 03/05/2017 04:05 PM Electronically Signed By:ELPIDIO Conklin Intervention Information
== END 2017-03-05 17:43 | disposition home or self-care (01) ==
LOC: F3N 22:15
PROVIDERS: ADMIT Internal Medicine; ATTEND Internal Medicine
DX: R51 Headache (principal); M54.5 Low back pain; R11.10 Vomiting, unspecified; R20.2 Paresthesia of skin
CPT/HCPCS: 97161; 97166; G0378; 96374; J1100; J1885; J2405

== ENCOUNTER 2017-06-25 20:44 | Emergency (ER) | payer BC ==
[2017-06-25 20:56] VITALS: TEMP 98.2
--- NOTE | 2017-06-25 21:17 | EDPHY ---
H & P Stated Complaint: flu-like, fevers, "blood tinged sputum", back pains/burning urine Time Seen by Provider: 06/25/17 21:16 HPI/ROS: HPI: This is a 22-year-old female who presents with Chief Complaint: flu-like, fevers, "blood tinged sputum", back pains/burning urine Location: Body Quality: Flu-like symptoms Duration: 10 days Signs and Symptoms: No chills, no fatigue, no sore throat, no neck stiffness, no headache, no abdominal pain, no vomiting Timing: Constant Severity: [id number] Context: Patient presents with multiple constitutional complaints times 10 days. She reports that she feels like she has flu-like symptoms. She has body aches, fatigue, 1 day history of a T-max of 101 F, nonproductive cough. Went to urgent care on Wednesday; influenza and rapid strep were negative for patient; no medications given. History of mononucleosis. Reports that she has been going to school 5 days a week and going to work. She feels tired. Patient reports over the last 3 days she has been having low back pain and burning with urination. Denies any blood in urine. She reports that she is able to drink large amounts of fluid during the day including Pedialyte. She is taking over- the-counter medications without any relief. Modifying Factors: See above Comment: ROS: see HPI Constitutional: No fever, no chills, no weight loss Eyes: No blurred vision Respiratory: No shortness of breath, no cough Cardiovascular: No chest pain Gastrointestinal: No nausea, no vomiting, no diarrhea Genitourinary: No dysuria Extremities: No myalgias Neurologic: No weakness, no numbness Skin: No rashes Hematologic: No bruising, no bleeding MEDICAL/SURGICAL/SOCIAL HISTORY: Medical/surgical history: Raynauds, cataracts, pancreatitis, asthma, vocal cord dysfunction, IBS, back pain, post concussion synd; septum repair 10/10/15. chronic n/v fibromyalgia; daily migraines tx'd w/Botox, pelvic floor dysergia, POTS:Postural orthostatic tachycardia syndrome, PCOS Social history: CONSTITUTIONAL: Extremely well-appearing young adult female, awake and alert, no obvious distress HEENT: Atraumatic and normocephalic, PERRL, EOMI. Tympanic membranes clear. Oropharynx clear, no exudate and moist pink mucosa. Airway patent. No lymphadenopathy. No meningismus. Cardiovascular: Normal S1/S2, regular rate, regular rhythm, without murmur rub or gallop. PULMONARY/CHEST: Symmetrical and nontender. Clear to auscultation bilaterally. Good air movement. No accessory muscle usage. ABDOMEN: Soft, nondistended, nontender, no rebound, no guarding, no peritoneal signs, no masses or organomegaly. No CVAT. EXTREMITIES: 2/2 pulses, strength 5/5, no deformities, no clubbing, no cyanosis or edema. NEUROLOGICAL: no focal neuro deficits. GCS 15. SKIN: Warm and dry, no erythema. no rash. Good capillary refill. Source: Patient Exam Limitations: No limitations - Personal History LMP (Females 10-55): IUD In Place Current Tetanus Diphtheria and Acellular Pertussis (TDAP): Yes Tetanus Vaccine Date: <10 years [employer] student - Medical/Surgical History Hx Asthma: Yes Hx Chronic Respiratory Disease: No Hx Diabetes: No Hx Cardiac Disease: No Hx Renal Disease: No Hx Cirrhosis: No Hx Alcoholism: No Hx HIV/AIDS: No Hx Splenectomy or Spleen Trauma: No Other PMH: Raynauds, cataracts, pancreatitis, asthma, vocal cord dysfunction, IBS, back pain, post concussion synd; septum repair 10/10/15. chronic n/v fibromyalgia. daily migraines tx'd w/botox, pelvic floor dysinerga, POTS: Postural orthostatic tachycardia syndrome, PCOS - Social History Smoking Status: Never smoked Constitutional: Initial Vital Signs Temperature (C) 36.8 C 06/25/17 20:46 Heart Rate 75 06/25/17 20:46 Respiratory Rate 20 06/25/17 20:46 Blood Pressure 107/60 06/25/17 20:46 O2 Sat (%) 98 06/25/17 20:46 O2 Delivery Mode Room Air Allergies/Adverse Reactions: amoxicillin Allergy (Intermediate, Verified 06/25/17 20:45) facial swelling/hives azithromycin Allergy (Intermediate, Verified 06/25/17 20:45) Abdominal Pain Home Medications: Medication Instructions Recorded Spironolactone [Aldactone] 50 mg PO BID 12/03/15 Botulinum Toxin Type A [Botox] 100 unit IJ Q90D 03/01/17 Doxycycline Hyclate [Vibramycin 100 mg PO BID 03/01/17 100 MG (*)] Clindamycin HCl [Clindamycin] 300 mg PO TID #30 cap 03/02/17 predniSONE 20 mg PO AD 03/02/17 Albuterol Hfa Anes Only [Proair 2 puffs IH QID 03/04/17 Hfa Icu (*)] Amitriptyline HCl [Elavil 50 mg 50 mg PO HS tab 03/05/17 (*)] Cyclobenzaprine [Flexeril 10 MG 10 mg PO TID PRN #15 tab 03/05/17 (*)] Diazepam [Valium 5 MG (*)] 5 mg PO TID PRN #15 tab 03/05/17 Diclofenac Sodium [Voltaren 50 MG 50 mg PO BID #30 tab 03/05/17 (*)] Lidocaine 5% [Lidoderm 5% Patch] 1 ea TD DAILY #5 patch 03/05/17 Medical Decision Making - Diagnostics Imaging Results: Imaging Impressions Chest X-Ray 06/25/17 21:17 Impression: No focal pneumonia. ED Course/Re-evaluation: Labs, urinalysis, chest x-ray, , IV fluids, IV medications ordered Given 1 L normal saline, IV promethazine Vital signs reviewed and stable upon arrival. Urinalysis shows no signs of infection Chest x-ray my read shows no opacity, no effusion, no pneumothorax, no widened mediastinum. Labs reviewed and grossly unremarkable [place] negative Influenza negative Advised supportive care. This patient was seen under the supervision of my secondary supervising physician. I evaluated care for this patient independently. Discussed this patient with Dr. Alberto who did not see the patient. Differential Diagnosis: Adult fever including but not limited to viral syndromes including influenza, urinary tract infection, pneumonia and sepsis. - Data Points Laboratory Results: Laboratory Results 06/25/17 22:05 06/25/17 22:20 06/25/17 06/25/17 06/25/17 22:20 22:20 22:05 WBC RBC Hgb Hct MCV MCH MCHC RDW Plt Count MPV Neut % (Auto) Lymph % (Auto) [place] % (Auto) Eos % (Auto) Baso % (Auto) Nucleat RBC Rel Count Absolute Neuts (auto) Absolute Lymphs (auto) Absolute Monos (auto) Absolute Eos (auto) Absolute Basos (auto) Absolute Nucleated RBC Immature Gran % Immature Gran # Sodium 137 mEq/L mEq/L (135-145) Potassium 3.9 mEq/L mEq/L (3.5-5.2) Chloride 106 mEq/L mEq/L (97-110) Carbon Dioxide 22 mEq/l mEq/l (22-31) Anion Gap 9 mEq/L mEq/L (8-16) BUN 14 mg/dL mg/dL (7-23) Creatinine 0.8 mg/dL mg/dL (0.6-1.0) Estimated GFR > 60 Glucose 69 mg/dL L mg/dL (70-100) Calcium 8.6 mg/dL mg/dL (8.5-10.4) Urine Color Urine Appearance Urine pH Ur Specific [place] Urine Protein Urine Ketones Urine Blood Urine Nitrate Urine Bilirubin Urine Urobilinogen Ur Leukocyte Esterase Urine RBC Urine WBC Ur Epithelial Cells Urine Mucus Urine Glucose Nasal Influenza A PCR Nasal Influenza B PCR Monoscreen NEGATIVE REJ (NEGATIVE) 06/25/17 06/25/17 06/25/17 22:05 22:05 22:05 WBC 8.05 10^3/uL 10^3/uL (3.80-9.50) RBC 5.16 10^6/uL 10^6/uL (4.18-5.33) Hgb 15.6 g/dL g/dL (12.6-16.3) Hct 45.6 % % (38.0-47.0) MCV 88.4 fL fL (81.5-99.8) MCH 30.2 pg pg (27.9-34.1) MCHC 34.2 g/dL g/dL (32.4-36.7) RDW 12.9 % % (11.5-15.2) Plt Count 311 10^3/uL 10^3/uL (150-400) MPV 9.8 fL fL (8.7-11.7) Neut % (Auto) 63.9 % % (39.3-74.2) Lymph % (Auto) 29.1 % % (15.0-45.0) [place] % (Auto) 5.3 % % (4.5-13.0) Eos % (Auto) 0.4 % L % (0.6-7.6) Baso % (Auto) 0.9 % % (0.3-1.7) Nucleat RBC Rel Count 0.0 % % (0.0-0.2) Absolute Neuts (auto) 5.15 10^3/uL 10^3/uL (1.70-6.50) Absolute Lymphs (auto) 2.34 10^3/uL 10^3/uL (1.00-3.00) Absolute Monos (auto) 0.43 10^3/uL 10^3/uL (0.30-0.80) Absolute Eos (auto) 0.03 10^3/uL 10^3/uL (0.03-0.40) Absolute Basos (auto) 0.07 10^3/uL 10^3/uL (0.02-0.10) Absolute Nucleated RBC 0.00 10^3/uL 10^3/uL (0-0.01) Immature Gran % 0.4 % % (0.0-1.1) Immature Gran # 0.03 10^3/uL 10^3/uL (0.00-0.10) Sodium TNP Potassium TNP Chloride TNP Carbon Dioxide TNP Anion Gap TNP BUN TNP Creatinine TNP Estimated GFR TNP Glucose TNP Calcium TNP Urine Color Urine Appearance Urine pH Ur Specific [place] Urine Protein Urine Ketones Urine Blood Urine Nitrate Urine Bilirubin Urine Urobilinogen Ur Leukocyte Esterase Urine RBC Urine WBC Ur Epithelial Cells Urine Mucus Urine Glucose Nasal Influenza A PCR NEGATIVE FOR FLU A (NEGATIVE) Nasal Influenza B PCR NEGATIVE FOR FLU B (NEGATIVE) Monoscreen 06/25/17 21:00 WBC RBC Hgb Hct MCV MCH MCHC RDW Plt Count MPV Neut % (Auto) Lymph % (Auto) [place] % (Auto) Eos % (Auto) Baso % (Auto) Nucleat RBC Rel Count Absolute Neuts (auto) Absolute Lymphs (auto) Absolute Monos (auto) Absolute Eos (auto) Absolute Basos (auto) Absolute Nucleated RBC Immature Gran % Immature Gran # Sodium Potassium Chloride Carbon Dioxide Anion Gap BUN Creatinine Estimated GFR Glucose Calcium Urine Color YELLOW Urine Appearance CLEAR Urine pH 6.0 (5.0-7.5) Ur Specific [place] 1.019 (1.002-1.030) Urine Protein 1+ H (NEGATIVE) Urine Ketones NEGATIVE (NEGATIVE) Urine Blood NEGATIVE (NEGATIVE) Urine Nitrate NEGATIVE (NEGATIVE) Urine Bilirubin NEGATIVE (NEGATIVE) Urine Urobilinogen NEGATIVE EU EU (0.2-1.0) Ur Leukocyte Esterase NEGATIVE (NEGATIVE) Urine RBC NONE SEEN /hpf /hpf (0-3) Urine WBC 1-3 /hpf /hpf (0-3) Ur Epithelial Cells TRACE /lpf /lpf (NONE-1+) Urine Mucus TRACE /lpf /lpf (NONE-1+) Urine Glucose NEGATIVE (NEGATIVE) Nasal Influenza A PCR Nasal Influenza B PCR Monoscreen Medications Given: Discontinued Medications Sodium Chloride (Ns) 1,000 mls @ 0 mls/hr IV EDNOW ONE; Wide Open PRN Reason: Protocol Stop: 06/25/17 21:39 Last Admin: 06/25/17 22:00 Dose: 1,000 mls Promethazine HCl (Phenergan) 25 mg IVP EDNOW ONE Stop: 06/25/17 21:39 Last Admin: 06/25/17 22:01 Dose: 12.5 mg Promethazine HCl (Phenergan) 12.5 mg IVP ONCE ONE Stop: 06/25/17 22:01 Last Admin: 06/25/17 22:04 Dose: Not Given Departure - Departure Disposition: Home, Routine, Self-Care Clinical Impression: Viral syndrome Condition: Good Instructions: Viral Syndrome (ED) Additional Instructions: Keep nasal mucosa moist; place a vaporizer by your bed, using a humidifier in your apartment, apply Vaseline to your nares at night. Rest as much as possible until you are feeling better. Follow up with [facility] in 1 week if still not feeling better. Referrals: [facility],. [Clinic] - 5-7 days, if not improved Stand Alone Forms: School Excuse
[2017-06-25] MEDS ORDERED: PROMETHAZINE HCL 25 MG/ML INJ IVP ONE ×2 (21:38→22:00)
[2017-06-25] MEDS ORDERED: NS 1,000 ML IV ONE (21:38)
[2017-06-25 22:14] LABS: PLATELET COUNT 311 10^3/uL (150-400)
[2017-06-25 23:29] VITALS: BP 106/72; PULSE 50; RESP 16; O2SAT 100
== END 2017-06-25 23:36 | disposition home or self-care (01) ==
DX: B34.9 Viral infection, unspecified (principal); J45.909 Unspecified asthma, uncomplicated; E86.9 Volume depletion, unspecified
CPT/HCPCS: 96374; J2550

== ENCOUNTER → 2017-07-30 | Outpatient (CLI) | payer BC | LOC: FIMAGING 11:07 | PROVIDERS: ATTEND Physician Assistant | DX: N63.10 Unspecified lump in the right breast, unspecified quadrant (principal); N64.4 Mastodynia ==

== ENCOUNTER 2018-03-30 14:27 | Emergency (ER) | payer BC ==
[2018-03-30] MEDS ORDERED: LORazepam 2 MG/ML INJ IVP ONE (17:06)
[2018-03-30] MEDS ORDERED: NS 1,000 ML IV ONE (17:06)
[2018-03-30] MEDS ORDERED: ONDANSETRON 4 MG/2 ML VIAL IVP ONE (17:06)
[2018-03-30] MEDS ORDERED: PROMETHAZINE HCL 25 MG/ML INJ IVP ONE (17:06)
[2018-03-30 17:32] LABS: PLATELET COUNT 283 10^3/uL (150-400)
--- NOTE | 2018-03-30 17:55 | EDPHY ---
General Time Seen by Provider: 03/30/18 17:07 Narrative: CHIEF COMPLAINT: Fell skiing, pain, nausea vomiting HISTORY OF PRESENT ILLNESS: Patient presents to emergency department with complaints of a ski accident on Wednesday. She states that she was skiing when she came to an abrupt stop, falling forward and lying on her right ribs. She denies head strike or loss of consciousness and was wearing a helmet. She complains of severe right-sided rib pain at that time. She was seen at urgent care with a reportedly normal x- ray. Since then her symptoms have worsened and now spread to her epigastrium. She reports abdominal pain, nausea, vomiting, constipation, near-syncope, vomiting blood times. Unable to provide any modifying factors. Symptoms are reportedly crown stent. She has no headache or neck pain. No chest or back pain. No extremity complaints. No other associated complaints or modifying factors. REVIEW OF SYSTEMS: 10 systems were reviewed and negative with the exception of the elements mentioned in the history of present illness. PCP: Located in [place] SPECIALISTS: None locally PAST MEDICAL HISTORY: Raynaud's, cataracts, pancreatitis, asthma, vocal cord dysfunction, IBS, pain, postconcussion syndrome, chronic nausea vomiting, fibromyalgia, migraines, pots , PCOS PAST SURGICAL HISTORY: None SOCIAL HISTORY: Nonsmoker. Occasional alcohol marijuana use. [employer] [place] student. Originally from [place] FAMILY HISTORY: Not contribute EXAMINATION: Vitals: Triage VS reviewed General Appearance: Alert, no distress. Anxious and Tearful but consolable. Nontoxic and well-appearing. Head: normocephalic, atraumatic. No depression deformity. No signs of trauma Eyes: Pupils equal and round, no conjunctival pallor or injection ENT, Mouth: Mucous membranes moist. Airway patent. Neck: Normal inspection, supple, non-tender Respiratory: Mild rhonchi. No wheezing, crackles or diminishment. Mild rhonchi. No retractions or distress. Normal work of breathing Cardiovascular: Regular rate and rhythm. No murmur Gastrointestinal: Abdomen is soft and nondistended. There is generalized tenderness out of proportion to examination. No tympany rigidity. No CVA tenderness. Back: non-tender, no bony abnormalities Neurological: Cranial nerves 2-12 grossly intact. A&O, nonfocal, normal gait Skin: Warm and dry, no rash Extremities: Nontender, no pedal edema. Range of motion symmetric extremities. Psychiatric: Mood and affect normal DIFFERENTIAL DIAGNOSES: Including but not limited to pulmonary contusion, hemothorax, pneumothorax, rib fracture, rib contusion, costochondritis, perforated viscus, renal laceration, liver laceration MDM: 5:05 p.m. Right-sided rib pain status post ski injury with new abdominal pain. She also complaints of nausea vomiting constipation. She appears to be somewhat anxious but her abdominal exam is nonacute. Vital signs are within normal limits. I have ordered laboratory studies and x-ray of the ribs. Pain medications and anti anxiety medication ordered. No acute distress. 5:50 p.m. Laboratory studies unremarkable. chest x-ray reveals nondisplaced right 8th anterolateral rib fracture. 6:20 p.m. Patient re-evaluated. She is feeling much better. We discussed the rib fracture on x-ray. We discussed her normal laboratory studies. We discussed discharge home with symptomatic medications. we discussed 24 hr return if her symptoms are not resolved at time. We discussed [id number] remedies for constipation. We discuss return here sooner should she have any ongoing abdominal pain, vomiting, constipation. She is comfortable this plan and would like to go home. Discharged stable condition and she will follow up [facility] at SUPERVISION: This patient was independently evaluated without direct involvement of or examination by the attending physician. CONSULTATION: None - Diagnostics Imaging Results: Imaging Impressions Ribs w/Chest X-Ray 03/30/18 17:07 Impression: Nondisplaced anterolateral right eighth rib fracture. Imaging: I viewed and interpreted images myself - History History Review: I reviewed the patient's medical records Smoking Status: Never smoked - Objective Vital Signs: Initial Vital Signs Temperature (C) 98.1 F 03/30/18 14:36 Heart Rate 88 03/30/18 14:36 Respiratory Rate 18 03/30/18 14:36 Blood Pressure 122/78 H 03/30/18 14:36 O2 Sat (%) 98 03/30/18 14:36 O2 Delivery Mode Room Air Allergies/Adverse Reactions: amoxicillin Allergy (Intermediate, Verified 06/25/17 20:45) facial swelling/hives azithromycin Allergy (Intermediate, Verified 06/25/17 20:45) Abdominal Pain Home Medications: Medication Instructions Recorded Doxycycline Ir-Dr 03/30/18 LORazepam [Ativan] 1 mg PO Q8 PRN #6 tablet 03/30/18 Ondansetron Odt [Zofran Odt 4 mg 4 mg PO Q6 PRN #12 tab 03/30/18 (*)] Spironolactone 03/30/18 Laboratory Results: Laboratory Results 03/30/18 17:17 03/30/18 17:17 03/30/18 03/30/18 03/30/18 17:17 17:17 17:17 WBC 10.45 10^3/uL H 10^3/uL (3.80-9.50) RBC 5.41 10^6/uL H 10^6/uL (4.18-5.33) Hgb 16.2 g/dL g/dL (12.6-16.3) Hct 48.7 % H % (38.0-47.0) MCV 90.0 fL fL (81.5-99.8) MCH 29.9 pg pg (27.9-34.1) MCHC 33.3 g/dL g/dL (32.4-36.7) RDW 12.6 % % (11.5-15.2) Plt Count 283 10^3/uL 10^3/uL (150-400) MPV 9.2 fL fL (8.7-11.7) Neut % (Auto) 72.5 % % (39.3-74.2) Lymph % (Auto) 21.0 % % (15.0-45.0) [place] % (Auto) 4.7 % % (4.5-13.0) Eos % (Auto) 0.7 % % (0.6-7.6) Baso % (Auto) 0.7 % % (0.3-1.7) Nucleat RBC Rel Count 0.0 % % (0.0-0.2) Absolute Neuts (auto) 7.59 10^3/uL H 10^3/uL (1.70-6.50) Absolute Lymphs (auto) 2.19 10^3/uL 10^3/uL (1.00-3.00) Absolute Monos (auto) 0.49 10^3/uL 10^3/uL (0.30-0.80) Absolute Eos (auto) 0.07 10^3/uL 10^3/uL (0.03-0.40) Absolute Basos (auto) 0.07 10^3/uL 10^3/uL (0.02-0.10) Absolute Nucleated RBC 0.00 10^3/uL 10^3/uL (0-0.01) Immature Gran % 0.4 % % (0.0-1.1) Immature Gran # 0.04 10^3/uL 10^3/uL (0.00-0.10) Sodium 138 mEq/L mEq/L (135-145) Potassium 4.0 mEq/L mEq/L (3.5-5.2) Chloride 103 mEq/L mEq/L (97-110) Carbon Dioxide 21 mEq/l L mEq/l (22-31) Anion Gap 14 mEq/L mEq/L (6-14) BUN 14 mg/dL mg/dL (7-23) Creatinine 0.8 mg/dL mg/dL (0.6-1.0) Estimated GFR > 60 Glucose 84 mg/dL mg/dL (70-100) Calcium 10.1 mg/dL mg/dL (8.5-10.4) Total Bilirubin 0.5 mg/dL mg/dL (0.1-1.4) Conjugated Bilirubin 0.1 mg/dL mg/dL (0.0-0.5) Unconjugated Bilirubin 0.4 mg/dL mg/dL (0.0-1.1) AST 20 IU/L IU/L (14-46) ALT 17 IU/L IU/L (9-52) Alkaline Phosphatase 59 IU/L IU/L (38-126) Total Protein 8.1 g/dL g/dL (6.3-8.2) Albumin 5.0 g/dL g/dL (3.5-5.0) Lipase 130 IU/L IU/L (23-300) Beta HCG, Qual NEGATIVE Medications Given: Discontinued Medications Sodium Chloride (Ns) 1,000 mls @ 0 mls/hr IV EDNOW ONE; Wide Open PRN Reason: Protocol Stop: 03/30/18 17:07 Last Admin: 03/30/18 17:44 Dose: 1,000 mls Lorazepam (Ativan Injection) 1 mg IVP EDNOW ONE Stop: 03/30/18 17:07 Last Admin: 03/30/18 17:45 Dose: 1 mg Miscellaneous Medication (Icy Hot Lidocaine/Menthol 4%/1% Patch) 1 patch TD EDNOW ONE Stop: 03/30/18 18:20 Last Admin: 03/30/18 18:36 Dose: 1 patch Ondansetron HCl (Zofran) 4 mg IVP EDNOW ONE Stop: 03/30/18 17:07 Last Admin: 03/30/18 17:45 Dose: 4 mg Promethazine HCl (Phenergan) 12.5 mg IVP EDNOW ONE Stop: 03/30/18 17:07 Last Admin: 03/30/18 17:44 Dose: 12.5 mg Departure - Departure Disposition: Home, Routine, Self-Care Clinical Impression: Constipation Qualifiers: Constipation type: unspecified constipation type Qualified Code(s): K59.00 - Constipation, unspecified Abdominal pain Qualifiers: Abdominal location: generalized Qualified Code(s): R10.84 - Generalized abdominal pain Closed fracture of one rib of right side Qualifiers: Encounter type: initial encounter Qualified Code(s): S22.31XA - Fracture of one rib, right side, initial encounter for closed fracture Condition: Good Instructions: Constipation (ED), Rib Fracture (ED) Additional Instructions: 1. Medications as prescribed as needed for symptom control 2. Wahz-fge-chqayfu Aleve, 2 pills by mouth twice daily 3. Ervl-gjw-jwdogsv magnesium citrate. Half a bottle now and wait 3-4 hours. Take the remainder of the bottle if needed. 4. Fzwp-suy-hjvpkyr MiraLax 1 packet daily or every other day 5. Return to emergency department if her symptoms do not improve the next 24 hr or for any worsening abdominal pain, vomiting or diarrhea. Referrals: [facility] [Clinic] - As per Instructions Physician,Emergency Dept, [Medical Doctor] - As per Instructions Stand Alone Forms: School Excuse, Work Excuse Prescriptions: LORazepam [Ativan] 1 mg PO Q8 PRN #6 tablet PRN Reason: Anxiety Ondansetron Odt [Zofran Odt 4 mg (*)] 4 mg PO Q6 PRN #12 tab PRN Reason: Nausea/Vomiting, Use 1st
[2018-03-30] MEDS ORDERED: LIDOCAINE 4%/MENTHOL 1% PATCH TD ONE (18:19)
[2018-03-30 18:40] VITALS: BP 110/75
[2018-03-30] MEDS ORDERED: PATCH REMOVAL 1 EA PATCH TD SCH (21:00)
== END 2018-03-30 18:41 | disposition home or self-care (01) ==
DX: S22.31XA Fracture of one rib, right side, initial encounter for closed fracture (principal); R10.84 Generalized abdominal pain; K59.00 Constipation, unspecified; V00.321A Fall from snow-skis, initial encounter; Y93.23 Activity, snow (alpine) (downhill) skiing, snowboarding, sledding, tobogganing and snow tubing; E86.9 Volume depletion, unspecified
CPT/HCPCS: 96374; J2060; J2405; J2550

== ENCOUNTER 2018-04-03 16:21 | Emergency (ER) | payer BC ==
[2018-04-03] MEDS ORDERED: LORazepam 2 MG/ML INJ IVP ONE (17:41)
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
[2018-04-03 18:16] LABS: PLATELET COUNT 259 10^3/uL (150-400)
[2018-04-03] MEDS ORDERED: IOPAMIDOL (ISOVUE-300) 100 ML BTL ONE (18:21)
[2018-04-03] MEDS ORDERED: KETOROLAC 15 MG/1 ML SDV IVP ONE (19:26)
[2018-04-03] MEDS ORDERED: PROMETHAZINE 25 MG PREPACK #4 BTL TAKEHOME ONE (20:00)
[2018-04-03 21:10] VITALS: BP 94/60
== END 2018-04-03 21:10 | disposition home or self-care (01) ==
DX: R10.84 Generalized abdominal pain (principal); R11.10 Vomiting, unspecified
CPT/HCPCS: 82435-PO; 82565-PO; 82947-PO; 84132-PO; 84295-PO; 84520-PO; 85014-PO; 96374; J0696; J1885; J2060; Q9967

== ENCOUNTER 2018-07-19 11:36 | Emergency (ER) | payer BC ==
[2018-07-19 11:42] VITALS: BP 104/70
== END 2018-07-19 13:59 | disposition left against medical advice (07) ==
DX: Z53.21 Procedure and treatment not carried out due to patient leaving prior to being seen by health care provider (principal)